=== PATIENT | female | born 1935 | race Caucasian/White ===

== ENCOUNTER 2020-11-05 12:57 | Inpatient (IN) ==
--- NOTE | 2020-11-05 13:40 | Emergency Department Note ---
Impression & Plan Acute hypernatremia, ROSA ELENA (acute kidney injury), Acute UTI, Pneumonitis ED Provider Note NAME: SAFIA BLANCAS AGE: 85 SEX: F : 1935 ARRIVES VIA: Ambulance INFORMANT: Patient ED PROVIDER(S): Jordan Galeano DO CHIEF COMPLAINT: Weakness HPI: Patient is an 85-year-old female who presents to the ER for gradual decline in status. Patient lives at [facility]. She had a fall at the end of September. She was seen at [place] where she had CTs done which were unremarkable. She was discharged. Since then there has been a gradual disc decline. Patient is a DNR/DNI. Staff note that she was diagnosed with a UTI and prescribed antibiotics. She is not taking the antibiotics. She is eating and drinking less. No new trauma. In discussion with family and they recommend that she come over for evaluation. They do have nurses there at the facility. They note that they checked her temperature this morning and it was slightly elevated at 100.5 and when they rechecked it was normal. She has been Covid tested multiple times and negative. ROS: See above HPI for pertinent positives & negatives. A total of 10 systems reviewed and were otherwise negative. PAST MEDICAL HISTORY:See Below PAST SURGICAL HISTORY:See Below FAMILY HISTORY:See Below SOCIAL HISTORY:See Below HOME MEDICATIONS:See Below ALLERGIES:See Below VITALS:See Below PHYSICAL EXAMINATION: GENERAL: Sitting up in bed, alert, agitated intermittently moving all extremities EYE EXAM: normal conjunctiva. PERRL and EOM's grossly intact. OROPHARYNX:mucous membranes are dry NECK: supple, no nuchal rigidity, no adenopathy, non-tender LUNGS: Clear to auscultation. Normal chest wall mechanics HEART: tachy, S1 normal and S2 normal ABDOMEN: abdomen soft, non-tender, normo-active bowel sounds, no masses, no rebound or guarding. UPPER EXTREMITIES: upper extremities are grossly normal. LOWER EXTREMITIES: No pitting edema. NEURO EXAM: Awake alert moving all extremities nonfocal not following commands nonverbal with exception of moaning MEDICAL DECISION MAKING: Patient is an 85-year-old female who presents the ER from residential and [place]. Patient is demented nonverbal not following commands. She is a DNR/DNI. IV was established blood work was obtained. Labs show no significant leukocytosis or anemia. BMP with a sodium 151. Chloride was elevated at 118. Creatinine was elevated at 2.4. LFTs bilirubin was unremarkable. Lipase was normal. UA does show a contaminated urine although it was a cath urine. We will treat for now. Patient was given 2 L IV fluids as well as IV Rocephin. Covid was negative. CT abdomen pelvis showed some pneumonitis. Chest x-ray shows opacities. Discussed with patient's family member who is the POA. They want conservative measures at this time. Discussed with hospitalist for further evaluation. Triage Nursing notes reviewed. Prior medical records reviewed Vital Signs: reviewed and remarkable for tachy Differential diagnosis: Infection, dehydration, metabolic abnormality, hypo/hyperglycemia, electrolyte disturbance, anemia, hypoxia, cardiac sources, intracerebral event, toxicologic, neurologic, as well as other pathologies. ER treatment provided: See below Diagnostics interpreted by me: ECG: none Cardiac Monitoring: An order was placed for continuous cardiac monitoring. The monitor shows a rate of 101 with sinus rhythm. Laboratory studies: As stated above and show below. Imaging studies: CT abdomen pelvis shows no acute pathology with exception of slightly dilated gallbladder and pneumonitis Portable AP upright 1 view of the chest shows bilateral opacities Consultation(s): Yudelka with hospitalist for further evaluation ED COURSE: Procedures: none Critical Care: None Past Med/Surg History Medical History (Updated 11/05/20 @ 17:21 by Jordan Galeano DO) Advanced dementia DNR (do not resuscitate) Mood disorder Social History Feels Safe at Home: Yes Allergies Allergies Allergy/AdvReac Type Severity Reaction Status Date / Time codeine Allergy Unknown ON Verified 11/05/20 15:41 [facility] MED LIST Home Meds Home Medications Medication Instructions Recorded Confirmed acetaminophen [Arthritis Pain 650 mg PO BID 11/05/20 11/05/20 Relief (acetam)] acetaminophen [Tylenol] 650 mg PO Q6H PRN 11/05/20 11/05/20 ascorbic acid (vitamin C) [Vitamin 500 mg PO BID 11/05/20 11/05/20 C] camphor-menthol [Biofreeze Pain 1 applic TOPICAL QID PRN 11/05/20 11/05/20 Relieving] citalopram 40 mg PO QDL 11/05/20 11/05/20 food supplemt, lactose-reduced 1 ea PO DAILY PRN 11/05/20 11/05/20 [Boost] lorazepam 0.5 mg PO WK 11/05/20 11/05/20 nystatin 1 applic TOPICAL TID PRN 11/05/20 11/05/20 quetiapine [Seroquel] 150 mg PO BID 11/05/20 11/05/20 silver sulfadiazine 1 applic TOPICAL BID PRN 11/05/20 11/05/20 sulfamethoxazole-trimethoprim 20 ml PO BID 11/05/20 11/05/20 trolamine salicylate [Aspercreme] 1 applic TOPICAL BID PRN 11/05/20 11/05/20 zinc gluconate 50 mg PO BID 11/05/20 11/05/20 Results & Data (ED) Vital Signs Vital Signs - 24 hr 11/05/20 13:19 11/05/20 14:45 11/05/20 15:46 Temperature 36.5 C Temperature Source Oral Pulse Rate 108 H Pulse Rate [Apical] Pulse Rate [Finger] 120 H 104 H Pulse Rhythm [Apical] Pulse Rhythm [Finger] Regular Respiratory Rate 18 25 H 19 Respiratory Effort / Characteristics Non-Labored Non-Labored Respiratory Depth Normal Normal Respiratory Pattern Regular Blood Pressure 147/82 H Blood Pressure [Left Arm] 138/64 126/62 Blood Pressure Mean 103 Blood Pressure Mean [Left Arm] 88 83 Blood Pressure Position Lying Blood Pressure Position [Left Arm] Pulse Oximetry 95 95 92 Oxygen Delivery Method Room Air Room Air Room Air Sepsis Recent Fever Within 48 Hours No Sepsis New/Unexplained Change in Mental Status No Sepsis Action Taken by Nursing No Action Required 11/05/20 16:26 Temperature Temperature Source Pulse Rate Pulse Rate [Apical] 102 H Pulse Rate [Finger] Pulse Rhythm [Apical] Regular Pulse Rhythm [Finger] Respiratory Rate 22 Respiratory Effort / Characteristics Non-Labored Spontaneous Respiratory Depth Normal Respiratory Pattern Regular Blood Pressure Blood Pressure [Left Arm] 138/77 Blood Pressure Mean Blood Pressure Mean [Left Arm] 97 Blood Pressure Position Blood Pressure Position [Left Arm] Lying Pulse Oximetry 93 Oxygen Delivery Method Room Air Sepsis Recent Fever Within 48 Hours Sepsis New/Unexplained Change in Mental Status Sepsis Action Taken by Nursing Laboratory Data Result diagrams: 11/05/20 14:00 11/05/20 14:00 Lab Results 11/05/20 11/05/20 11/05/20 Range/Units 14:00 14:00 14:00 WBC 6.65 (4.8-10.8) K/uL RBC 4.63 (4.2-5.4) M/uL Hgb 14.0 (12.0-16.0) g/dL Hct 44.2 (37-47) % MCV 95.5 (80-100) fL MCH 30.2 (25-34) pg MCHC 31.7 L (32-36) g/dL RDW Std Deviation 45.6 (36.4-46.3) fL RDW Coeff of Rigo 13.1 (11.5-14.5) % Plt Count 276 (130-400) K/uL MPV 11.1 H (7.4-10.4) fL Immature Gran % (Auto) 0.5 % Neut % (Auto) 68.6 % Lymph % (Auto) 17.1 % Boundary % (Auto) 13.4 % Eos % (Auto) 0.2 % Baso % (Auto) 0.2 % Neut # (Auto) 4.57 (1.4-6.5) K/uL Lymph # (Auto) 1.14 L (1.2-3.4) K/uL Boundary # (Auto) 0.89 H (0.11-0.59) K/uL Eos # (Auto) 0.01 (0-0.5) K/uL Baso # (Auto) 0.01 (0-0.2) K/uL Immature Gran # (Auto) 0.03 H (0.00-0.02) K/uL Sodium 151 H (136-145) mmol/L Potassium 4.5 (3.5-5.1) mmol/L Chloride 118 H (98-107) mmol/L Carbon Dioxide 26 (21-32) mmol/L Anion Gap 7.0 (3-11) BUN 52 H (7-18) mg/dl Creatinine 2.14 H (0.6-1.2) mg/dl Est Cr Clr Drug Dosing Not Reportable Est GFR ( Amer) 23.5 Est GFR (Non-Af Amer) 20.3 BUN/Creatinine Ratio 24.1 H (10-20) Glucose 110 H (70-99) mg/dl Calcium 9.2 (8.5-10.1) mg/dl Total Bilirubin 0.6 (0.2-1) mg/dl AST 34 (15-37) U/L ALT 23 (12-78) U/L Alkaline Phosphatase 113 (45-117) U/L Total Protein 8.9 H (6.4-8.2) gm/dl Albumin 3.4 (3.4-5.0) gm/dl Globulin 5.5 H (2.5-4.0) gm/dl Albumin/Globulin Ratio 0.6 L (0.9-2) Lipase 209 (73-393) U/L Urine Color Dark Yellow Urine Appearance Turbid A (Clear) Urine pH 8.0 H (4.5-7.5) Ur Specific [place] 1.023 (1.000-1.030) Urine Protein 2+ H (Negative) Urine Glucose (UA) Negative (Negative) Urine Ketones Trace H (Negative) Urine Blood 2+ H (Negative) Urine Nitrite Negative (Negative) Urine Bilirubin Negative (Negative) Urine Urobilinogen Negative (Negative) Ur Leukocyte Esterase 1+ H (Negative) Urine WBC (Auto) >30 H (0-5) /hpf Urine RBC (Auto) 10-30 H (0-4) /hpf U Hyaline Cast (Auto) 1-5 (0-5) /lpf U Epithel Cells (Auto) 20-30 H (0-5) /lpf Urine Bacteria (Auto) 4+ H (Negative) Urine Yeast Not Reportable COVID-19 Eval Order SARS-CoV-2, RNA, NAAT (NEGATIVE) SARS-CoV-2 Ag (Rapid) (Negative) 11/05/20 11/05/20 11/05/20 Range/Units 16:40 16:40 Unknown WBC (4.8-10.8) K/uL RBC (4.2-5.4) M/uL Hgb (12.0-16.0) g/dL Hct (37-47) % MCV (80-100) fL MCH (25-34) pg MCHC (32-36) g/dL RDW Std Deviation (36.4-46.3) fL RDW Coeff of Rigo (11.5-14.5) % Plt Count (130-400) K/uL MPV (7.4-10.4) fL Immature Gran % (Auto) % Neut % (Auto) % Lymph % (Auto) % Boundary % (Auto) % Eos % (Auto) % Baso % (Auto) % Neut # (Auto) (1.4-6.5) K/uL Lymph # (Auto) (1.2-3.4) K/uL Boundary # (Auto) (0.11-0.59) K/uL Eos # (Auto) (0-0.5) K/uL Baso # (Auto) (0-0.2) K/uL Immature Gran # (Auto) (0.00-0.02) K/uL Sodium (136-145) mmol/L Potassium (3.5-5.1) mmol/L Chloride (98-107) mmol/L Carbon Dioxide (21-32) mmol/L Anion Gap (3-11) BUN (7-18) mg/dl Creatinine (0.6-1.2) mg/dl Est Cr Clr Drug Dosing Est GFR ( Amer) Est GFR (Non-Af Amer) BUN/Creatinine Ratio (10-20) Glucose (70-99) mg/dl Calcium (8.5-10.1) mg/dl Total Bilirubin (0.2-1) mg/dl AST (15-37) U/L ALT (12-78) U/L Alkaline Phosphatase (45-117) U/L Total Protein (6.4-8.2) gm/dl Albumin (3.4-5.0) gm/dl Globulin (2.5-4.0) gm/dl Albumin/Globulin Ratio (0.9-2) Lipase (73-393) U/L Urine Color Urine Appearance (Clear) Urine pH (4.5-7.5) Ur Specific [place] (1.000-1.030) Urine Protein (Negative) Urine Glucose (UA) (Negative) Urine Ketones (Negative) Urine Blood (Negative) Urine Nitrite (Negative) Urine Bilirubin (Negative) Urine Urobilinogen (Negative) Ur Leukocyte Esterase (Negative) Urine WBC (Auto) (0-5) /hpf Urine RBC (Auto) (0-4) /hpf U Hyaline Cast (Auto) (0-5) /lpf U Epithel Cells (Auto) (0-5) /lpf Urine Bacteria (Auto) (Negative) Urine Yeast COVID-19 Eval Order [facility] SARS-CoV-2, RNA, NAAT NEGATIVE (NEGATIVE) SARS-CoV-2 Ag (Rapid) Negative (Negative) Administered Medications Discontinued Medications Sodium Chloride (Nss 1000ml) 2,000 mls @ 999 mls/hr IV .Q2H1M ONE Stop: 11/05/20 17:07 Last Admin: 11/05/20 15:40 Dose: 999 mls/hr Documented by: [id number] Ceftriaxone Sodium (Rocephin) 1,000 mg in 50 mls @ 100 mls/hr IV NOW STA Stop: 11/05/20 15:36 Last Infusion: 11/05/20 16:34 Dose: 0 mls/hr Documented by: [id number] Admin: 11/05/20 15:39 Dose: 100 mls/hr Documented by: [id number] Discharge Plan Visit Data Chief Complaint: Urinary Symptoms ED Provider: Jordan Galeano Discharge Problem: Acute hypernatremia, ROSA ELENA (acute kidney injury), Acute UTI, Pneumonitis Forms Stand Alone Forms: [facility] Prescriptions Prescriptions: No Action silver sulfadiazine 1 % Cream 1 applic TOPICAL BID PRN (Reason: AFFECTED AREAS) RF: 0 acetaminophen [Tylenol] 325 mg Tablet 650 mg PO Q6H PRN (Reason: FEVER/PAIN) RF: 0 citalopram 40 mg Tablet 40 mg PO QDL RF: 0 quetiapine [Seroquel] 100 mg Tablet 150 mg PO BID RF: 0 acetaminophen [Arthritis Pain Relief (acetam)] 650 mg Tablet Extended Release 650 mg PO BID RF: 0 lorazepam 0.5 mg Tablet 0.5 mg PO WK RF: 0 ascorbic acid (vitamin C) [Vitamin C] 500 mg Tablet 500 mg PO BID RF: 0 sulfamethoxazole-trimethoprim 200-40 mg/5 mL Suspension 20 ml PO BID RF: 0 zinc gluconate 50 mg Tablet 50 mg PO BID RF: 0 nystatin 100,000 unit/gram Powder 1 applic TOPICAL TID PRN (Reason: Rash) RF: 0 trolamine salicylate [Aspercreme] 10 % Cream 1 applic TOPICAL BID PRN (Reason: LEG PAIN) RF: 0 Boost Liquid 1 ea PO DAILY PRN (Reason: IF EATS <25% OF MEALS) RF: 0 Biofreeze Pain Relieving 0.2-3.5 % Gel 1 applic TOPICAL QID PRN (Reason: Pain) RF: 0
[2020-11-05 14:22] LABS: Basophils # (auto) 0.01 K/uL (0-0.2); Basophils % (auto) 0.2 %; Eosinophils # (auto) 0.01 K/uL (0-0.5); Eosinophils % (auto) 0.2 %; Hematocrit (blood only) 44.2 % (37-47); Immature Granulocytes # (auto) 0.03 K/uL (0.00-0.02); Immature Granulocytes % (auto) 0.5 %; Lymphocytes # (auto) 1.14 K/uL (1.2-3.4); Lymphocytes % (auto) 17.1 %; Mean Corpuscular Hemoglobin 30.2 pg (25-34); Mean Corpuscular Hgb Conc 31.7 g/dL (32-36); Mean Corpuscular Volume 95.5 fL (80-100); Mean Platelet Volume 11.1 fL (7.4-10.4); Monocytes # (auto) 0.89 K/uL (0.11-0.59); Monocytes % (auto) 13.4 %; Neutrophils # (auto) 4.57 K/uL (1.4-6.5); Neutrophils % (auto) 68.6 %; Platelet Count 276 K/uL (130-400); RDW Coefficient of Variation 13.1 % (11.5-14.5); RDW Standard Deviation 45.6 fL (36.4-46.3); Red Blood Count 4.63 M/uL (4.2-5.4); White Blood Count 6.65 K/uL (4.8-10.8)
[2020-11-05 14:33] LABS: Appearance Urine Turbid (Clear); Bacteria Urine Automated 4+ (Negative); Bilirubin Urine Negative (Negative); Blood Urine 2+ (Negative); Color Urine Dark Yellow; Epithelial Cell Urine Auto 20-30 /lpf (0-5); Glucose Urine UA Negative (Negative); Ketones Urine Trace (Negative); Leukocyte Esterase Urine 1+ (Negative); Nitrite Urine Negative (Negative); Specific Gravity Urine 1.023 (1.000-1.030); Urobilinogen Urine Negative (Negative); WBC Urine Automated >30 /hpf (0-5)
[2020-11-05 14:39] LABS: Alanine Aminotransferase 23 U/L (12-78); Albumin Level 3.4 gm/dl (3.4-5.0); Aspartate Aminotransferase 34 U/L (15-37); BUN Creatinine Ratio 24.1 (10-20); Blood Urea Nitrogen 52 mg/dl (7-18); Calcium 9.2 mg/dl (8.5-10.1); Carbon Dioxide 26 mmol/L (21-32); Chloride 118 mmol/L (98-107); Est GFR (African American) 23.5; Est GFR (Non-African American) 20.3; Glucose 110 mg/dl (70-99); Lipase 209 U/L (73-393); Potassium 4.5 mmol/L (3.5-5.1); Sodium 151 mmol/L (136-145)
--- NOTE | 2020-11-05 14:40 | XRay Report ---
XR chest 1V portable HISTORY: Weakness. COMPARISON: None. FINDINGS: No pneumothorax. No pleural effusions. The heart is normal in size. There are low lung volu mes. Retrocardiac density is consistent with a moderate to large hiatus hernia. There are hazy periph eral airspace opacities within the right midlung zone and bilateral lung bases. This favors a viral p neumonia. IMPRESSION: Peripheral hazy airspace opacities within the right midlung zone and bilateral lung bases suggestive of a viral pneumonia. ACT 112: Negative or not required by law. Electronically signed by: Vineet Mccauley M.D. 11/05/2020 2:38 PM
[2020-11-05 14:42] LABS: Albumin Globulin Ratio 0.6 (0.9-2); Alkaline Phosphatase 113 U/L (45-117); Bilirubin,Total 0.6 mg/dl (0.2-1); Globulin 5.5 gm/dl (2.5-4.0); Total Protein 8.9 gm/dl (6.4-8.2)
[2020-11-05 14:51] LABS: Protein Urine 2+ (Negative); Sulfosalicylic Acid Urine Positive (Negative)
[2020-11-05] MEDS ORDERED: SODIUM CHLORIDE 0.9% 1000ML 2,000 ML IV ONE (15:07)
[2020-11-05] MEDS ORDERED: cefTRIAXone SODIUM 1,000 MG/50 ML BAG IV STA (15:07)
--- NOTE | 2020-11-05 15:39 | CT Scan Report ---
CT SCAN OF THE ABDOMEN AND PELVIS WITHOUT IV CONTRAST CLINICAL HISTORY: Generalized weakness. Not eating or drinking. COMPARISON STUDY: No priors. TECHNIQUE: CT scan of the abdomen and pelvis is performed from the lung bases to the proximal femora. Images are reviewed in the axial, sagittal, and coronal planes. IV contrast was not administered for this examination. Note that the examination is significant suboptimal without oral and IV contrast. There is also streak artifact from the arms which could not be elevated above the abdomen and motion artifact. A dose lowering technique was utilized adhering to the principles of ALARA. CT DOSE: 393.68 mGy.cm FINDINGS: Lung bases: The heart is normal in size noting trace pericardial effusion. There are coronary artery calcifications. There is subpleural groundglass consolidation at the right lung base. Minimal groundg lass consolidation is noted in the lingula. No pleural effusion is seen. There is a large hiatal tiara ia. Liver: The unenhanced liver is normal in size, contour, and attenuation. There is no intrahepatic lobito iary ductal dilatation. Gallbladder: The gallbladder is distended but otherwise normal as imaged.. Spleen: Normal in size and attenuation. Pancreas: The unenhanced pancreas is atrophic and grossly unremarkable. Adrenal glands: Unremarkable. Kidneys: The unenhanced kidneys demonstrate cortical atrophy and are without hydronephrosis. There ar e no renal calculi identified. Bilateral renal cysts measure up to 3 cm. Abdominal vasculature: There is advanced atherosclerotic calcification and mild ectasia of the abdomi nal aorta. Bowel: There is rectosigmoid fecal retention and moderate constipation. No bowel obstruction is seen. The appendix is not visualized. Peritoneum: There is no intraperitoneal free air or abdominal ascites. Lymphadenopathy: None. Pelvic viscera: The bladder is grossly unremarkable. The uterus is surgically absent. No adnexal lesi on is seen. Skeletal structures: The skeletal structures are osteopenic. There is moderate to advanced lumbosacra l spondylosis. A chronic appearing compression deformities noted in T11. No lytic or blastic lesions are seen. IMPRESSION: 1. Suboptimal examination without oral and IV contrast. There is also significant streak and motion a rtifact 2. There is groundglass consolidation at both lung bases, right greater than left. This is typical fo r an infectious/inflammatory pneumonitis and clinical correlation will be required. 3. There are no acute infectious or inflammatory findings in the abdomen or pelvis. 4. There is rectosigmoid fecal retention and moderate constipation. No bowel obstruction is seen. 5. The gallbladder is distended but otherwise normal as imaged. Consider right upper quadrant ultraso und if there is clinical concern for biliary pathology. 6. Large hiatal hernia. 7. Additional findings as above. ACT 112: Negative or not required by law. Electronically signed by: Robbie Mcfarland M.D. 11/05/2020 3:37 PM
--- NOTE | 2020-11-05 16:10 | History & Physical Report ---
Date of Service November 05, 2020 Assessment & Plan (1) Sepsis: (2) Urinary tract infection: This is an 85-year-old female with PMH of advanced dementia, mood disorder, recent UTI who presents from [facility] in [place] with gradual decline in UTI. -Febrile PUBLIC HEALTH SPECIALIST with T: 100.5 F, tachycardia, urinary source of infection - meets sepsis per CMS guidelines -In ED, patient given 2 L NSS bolus and empiric Rocephin. Urine culture ordered- added blood cx, lactate, procal -Prescribed Bactrim on 10/24 at [facility] but reportedly refusing abx in setting of 3 week gradual decline, per facility -Continue empiric abx with broad spectrum zosyn, vanc. MRSA swab pending, follow cultures and deescalate abx as appropriate -CT abd/pelvis without evidence of urinary obstruction. Bladder scan PRN (3) Hypernatremia: (4) Generalized weakness: (5) Dehydration: Na of 151, Cl 118 in setting of poor PO intake -Received 2 L bolus of NSS in ED. Repeating BMP and will then order additional fluids -Monitor BMP daily (6) Acute renal failure: Cr elevated at 2.14, BUN 51. Unsure of renal function baseline - requested records from Assisted Living facility -Expect improvement with IV fluids, Ct abd/pelvis without evidence of urinary obstruction -Daily BMP, consider nephrology consult (7) Ground glass opacity present on imaging of lung: CXR and CT abd/pelvis with groundglass consolidation at both lung bases, right greater than left. This is typical for an infectious/inflammatory pneumonitis and clinical correlation will be required -Patient non-verbal so difficult to get clinical picture but afebrile. Rapid covid screen negative but covid RNA NAAT test also negative. Receiving empiric abx (8) Constipation: CT abd/pelvis with rectosigmoid fecal retention and moderate constipation. No bowel obstruction is seen -Ordered Fleet enema, continue IV fluids (9) Mood disorder: Continue SSRI, Seroquel (10) Advanced dementia: Nonverbal at baseline. Will attempt to reach POA again to discuss goals of care (11) Goals of care, counseling/discussion: Discussed with POA Odell ([phone]) regarding goals of care. He is one of 3 POAs. Confirmed patient as a DNR/DNI. Ok with fluids and antibiotics. Agreeable to palliative care consult to further determine goals of care. DVT Ppx: SQ heparin Code status: DNR/DNI PCP: Pedro Pablo (Ryan) Dispo: Admitted to [facility]. Discharge planning, PT and OT ordered for when patient medically appropriate for return to [facility] Requested faxed documentation from [facility]isted [facility]. Will update problem list with info provided. Patient seen in collaboration with Dr. Ashton. Please see addendum. History of Present Illness Chief Complaint: Gradual decline, dehydration, UTI Primary Care Provider: Sukhi Chamorro MD This is an 85-year-old female with PMH of advanced dementia, mood disorder, recent UTI who presents from [facility] in [place] with gradual decline in UTI. Patient lives in a dementia unit and is nonverbal at baseline. Was seen at [facility] at the end of September after fall. CT scans reportedly unremarkable and was sent back to facility. Since then, staff has noted a gradual decline. Is ambulatory at baseline, but has been more lethargic, refusing medications and not eating or drinking much. Was evaluated at [facility] on 10/24 with fever and concern for Covid. Covid test was negative and patient was diagnosed with UTI and sent home on Bactrim. No urine culture and records. Has not been compliant with medications, including Bactrim and was found to be febrile this morning temperature 100.5 F. Patient sent to [facility] for further evaluation. Patient is a DNR/DNI. Family member POA is involved and desired patient to come in for further evaluation. Reportedly okay with IV fluids and antibiotics but will clarify through phone discussion. Unable to obtain ROS due to cognitive status. In ED, patient afebrile. Tachycardic at 120. UA grossly abnormal and started on empiric Rocephin. Given 2 L NSS bolus. Covid antigen screen negative. CT abd/pelvis suboptimal examination without oral and IV contrast but presence of ground glass consolidation at both lung bases, right greater than left. This is typical for an infectious/inflammatory pneumonitis and clinical correlation will be required. No acute infectious or inflammatory findings in the abdomen or pelvis. There is rectosigmoid fecal retention and moderate constipation. No bowel obstruction is seen. Allergies Allergy/AdvReac Type Severity Reaction Status Date / Time codeine Allergy Unknown ON Verified 11/05/20 15:41 [facility] MED LIST Home Medications Medication Instructions Recorded Confirmed Type acetaminophen [Arthritis Pain 650 mg PO BID 11/05/20 11/05/20 History Relief (acetam)] acetaminophen [Tylenol] 650 mg PO Q6H PRN 11/05/20 11/05/20 History ascorbic acid (vitamin C) [Vitamin 500 mg PO BID 11/05/20 11/05/20 History C] camphor-menthol [Biofreeze Pain 1 applic TOPICAL QID PRN 11/05/20 11/05/20 History Relieving] citalopram 40 mg PO QDL 11/05/20 11/05/20 History food supplemt, lactose-reduced 1 ea PO DAILY PRN 11/05/20 11/05/20 History [Boost] lorazepam 0.5 mg PO WK 11/05/20 11/05/20 History nystatin 1 applic TOPICAL TID PRN 11/05/20 11/05/20 History quetiapine [Seroquel] 150 mg PO BID 11/05/20 11/05/20 History silver sulfadiazine 1 applic TOPICAL BID PRN 11/05/20 11/05/20 History sulfamethoxazole-trimethoprim 20 ml PO BID 11/05/20 11/05/20 History trolamine salicylate [Aspercreme] 1 applic TOPICAL BID PRN 11/05/20 11/05/20 History zinc gluconate 50 mg PO BID 11/05/20 11/05/20 History Past Med/Surg History Medical History Advanced dementia DNR (do not resuscitate) Mood disorder Social History Feels Safe at Home: Yes Review of Systems Review of Systems: Unobtainable due to cognitive status Physical Exam Physical Exam: Please see Dr. Ashton's addendum for physical exam. Results & Data Results & Data ([facility]) Vital Signs (Past 12 Hours) Vital Signs Temp Pulse Pulse Resp BP BP Pulse Ox 11/05/20 15:46 104 H 19 126/62 92 11/05/20 14:45 120 H 25 H 138/64 95 11/05/20 13:19 36.5 C 108 H 18 147/82 H 95 Laboratory Results Short CBC 11/05/20 11/05/20 11/05/20 Range/Units 14:00 14:00 14:00 WBC 6.65 (4.8-10.8) K/uL RBC 4.63 (4.2-5.4) M/uL Hgb 14.0 (12.0-16.0) g/dL Hct 44.2 (37-47) % MCV 95.5 (80-100) fL MCH 30.2 (25-34) pg MCHC 31.7 L (32-36) g/dL RDW Std Deviation 45.6 (36.4-46.3) fL RDW Coeff of [place] 13.1 (11.5-14.5) % Plt Count 276 (130-400) K/uL MPV 11.1 H (7.4-10.4) fL Immature Gran % (Auto) 0.5 % Neut % (Auto) 68.6 % Lymph % (Auto) 17.1 % [place] % (Auto) 13.4 % Eos % (Auto) 0.2 % Baso % (Auto) 0.2 % Neut # (Auto) 4.57 (1.4-6.5) K/uL Lymph # (Auto) 1.14 L (1.2-3.4) K/uL [place] # (Auto) 0.89 H (0.11-0.59) K/uL Eos # (Auto) 0.01 (0-0.5) K/uL Baso # (Auto) 0.01 (0-0.2) K/uL Immature Gran # (Auto) 0.03 H (0.00-0.02) K/uL Sodium 151 H (136-145) mmol/L Potassium 4.5 (3.5-5.1) mmol/L Chloride 118 H (98-107) mmol/L Carbon Dioxide 26 (21-32) mmol/L Anion Gap 7.0 (3-11) BUN 52 H (7-18) mg/dl Creatinine 2.14 H (0.6-1.2) mg/dl Est Cr Clr Drug Dosing Not Reportable Est GFR ( Amer) 23.5 Est GFR (Non-Af Amer) 20.3 BUN/Creatinine Ratio 24.1 H (10-20) Glucose 110 H (70-99) mg/dl Calcium 9.2 (8.5-10.1) mg/dl Total Bilirubin 0.6 (0.2-1) mg/dl AST 34 (15-37) U/L ALT 23 (12-78) U/L Alkaline Phosphatase 113 (45-117) U/L Total Protein 8.9 H (6.4-8.2) gm/dl Albumin 3.4 (3.4-5.0) gm/dl Globulin 5.5 H (2.5-4.0) gm/dl Albumin/Globulin Ratio 0.6 L (0.9-2) Lipase 209 (73-393) U/L Urine Color Dark Yellow Urine Appearance Turbid A (Clear) Urine pH 8.0 H (4.5-7.5) Ur Specific [place] 1.023 (1.000-1.030) Urine Protein 2+ H (Negative) Urine Glucose (UA) Negative (Negative) Urine Ketones Trace H (Negative) Urine Blood 2+ H (Negative) Urine Nitrite Negative (Negative) Urine Bilirubin Negative (Negative) Urine Urobilinogen Negative (Negative) Ur Leukocyte Esterase 1+ H (Negative) Urine WBC (Auto) >30 H (0-5) /hpf Urine RBC (Auto) 10-30 H (0-4) /hpf U Hyaline Cast (Auto) 1-5 (0-5) /lpf U Epithel Cells (Auto) 20-30 H (0-5) /lpf Urine Bacteria (Auto) 4+ H (Negative) Urine Yeast Not Reportable SARS-CoV-2 Ag (Rapid) (Negative) 11/05/20 Range/Units Unknown WBC (4.8-10.8) K/uL RBC (4.2-5.4) M/uL Hgb (12.0-16.0) g/dL Hct (37-47) % MCV (80-100) fL MCH (25-34) pg MCHC (32-36) g/dL RDW Std Deviation (36.4-46.3) fL RDW Coeff of [place] (11.5-14.5) % Plt Count (130-400) K/uL MPV (7.4-10.4) fL Immature Gran % (Auto) % Neut % (Auto) % Lymph % (Auto) % [place] % (Auto) % Eos % (Auto) % Baso % (Auto) % Neut # (Auto) (1.4-6.5) K/uL Lymph # (Auto) (1.2-3.4) K/uL [place] # (Auto) (0.11-0.59) K/uL Eos # (Auto) (0-0.5) K/uL Baso # (Auto) (0-0.2) K/uL Immature Gran # (Auto) (0.00-0.02) K/uL Sodium (136-145) mmol/L Potassium (3.5-5.1) mmol/L Chloride (98-107) mmol/L Carbon Dioxide (21-32) mmol/L Anion Gap (3-11) BUN (7-18) mg/dl Creatinine (0.6-1.2) mg/dl Est Cr Clr Drug Dosing Est GFR ( Amer) Est GFR (Non-Af Amer) BUN/Creatinine Ratio (10-20) Glucose (70-99) mg/dl Calcium (8.5-10.1) mg/dl Total Bilirubin (0.2-1) mg/dl AST (15-37) U/L ALT (12-78) U/L Alkaline Phosphatase (45-117) U/L Total Protein (6.4-8.2) gm/dl Albumin (3.4-5.0) gm/dl Globulin (2.5-4.0) gm/dl Albumin/Globulin Ratio (0.9-2) Lipase (73-393) U/L Urine Color Urine Appearance (Clear) Urine pH (4.5-7.5) Ur Specific [place] (1.000-1.030) Urine Protein (Negative) Urine Glucose (UA) (Negative) Urine Ketones (Negative) Urine Blood (Negative) Urine Nitrite (Negative) Urine Bilirubin (Negative) Urine Urobilinogen (Negative) Ur Leukocyte Esterase (Negative) Urine WBC (Auto) (0-5) /hpf Urine RBC (Auto) (0-4) /hpf U Hyaline Cast (Auto) (0-5) /lpf U Epithel Cells (Auto) (0-5) /lpf Urine Bacteria (Auto) (Negative) Urine Yeast SARS-CoV-2 Ag (Rapid) Negative (Negative) BMP 12/15/20 14:00 Sodium 151 H Potassium 4.5 Chloride 118 H Carbon Dioxide 26 BUN 52 H Creatinine 2.14 H Glucose 110 H Calcium 9.2 Liver Function 11/05/20 Range/Units 14:00 Total Bilirubin 0.6 (0.2-1) mg/dl AST 34 (15-37) U/L ALT 23 (12-78) U/L Alkaline Phosphatase 113 (45-117) U/L Albumin 3.4 (3.4-5.0) gm/dl Urine 11/05/20 Range/Units 14:00 Urine Color Dark Yellow Urine Appearance Turbid A (Clear) Urine pH 8.0 H (4.5-7.5) Ur Specific [place] 1.023 (1.000-1.030) Urine Protein 2+ H (Negative) Urine Glucose (UA) Negative (Negative) Diagnostic Findings CXR: IMPRESSION: Peripheral hazy airspace opacities within the right midlung zone and bilateral lung bases suggestive of a viral pneumonia. CT abd/pelvis: IMPRESSION: 1. Suboptimal examination without oral and IV contrast. There is also significant streak and motion artifact 2. There is groundglass consolidation at both lung bases, right greater than left. This is typical for an infectious/inflammatory pneumonitis and clinical correlation will be required. 3. There are no acute infectious or inflammatory findings in the abdomen or pelvis. 4. There is rectosigmoid fecal retention and moderate constipation. No bowel obstruction is seen. 5. The gallbladder is distended but otherwise normal as imaged. Consider right upper quadrant ultrasound if there is clinical concern for biliary pathology. 6. Large hiatal hernia. 7. Additional findings as above Code Status & VTE Plan VTE Prophylaxis Plan VTE Prophylaxis will be ordered: Yes Supervising Physician Co-Signing Physician Notes ROS-offers no history, follows no commands Physical Exam Gen-AA not oriented, combative, Afebrile Head-NCAT, EOMI, PERRLA, Anicteric Sclera, No Posterior Pharyngeal Erythema, MM very dry Neck-Supple, No JVD, No Thyromegaly, No Masses, No LAD, No Bruits Lungs-Clear to Auscultation Bilaterally, No Rales, No Rhonchi, No Wheezing, No Crepitus Chest-No S4, +S1, +S2, No S3, No Murmurs, No Rubs, No Gallops, No Ectopy Abdomen-Soft, Bowel Sounds Present, Non Tender, Non Distended, No Hepatomegaly, No Splenomegaly, No Palpable Masses, No Rebound, No Rigidity, No Guarding Musculoskeletal-Full Range of Motion Bilaterally, No CVAT Extremities-No Cyanosis, No Clubbing, No Edema Nuero-Cranial Nerves II-XII grossly intact, Motor WNL, DTRs WNL, Strength WNL, Non Focal Psych-Normal Mood
[2020-11-05 18:11] LABS: BUN Creatinine Ratio 26.2 (10-20); Blood Urea Nitrogen 50 mg/dl (7-18); Calcium 7.9 mg/dl (8.5-10.1); Carbon Dioxide 25 mmol/L (21-32); Chloride 122 mmol/L (98-107); Est GFR (African American) 27.2; Est GFR (Non-African American) 23.5; Glucose 117 mg/dl (70-99); Potassium 4.6 mmol/L (3.5-5.1); Sodium 153 mmol/L (136-145)
[2020-11-05] MEDS ORDERED: SILVER SULFADIAZINE 1% CR 50 GM JAR TOP PRN (19:06)
[2020-11-05] MEDS ORDERED: TROLAMINE SALICYLATE 10% CRM 255 APPLN/85 GM TUBE EXT PRN (19:06)
[2020-11-05] MEDS ORDERED: ACETAMINOPHEN 325 MG TAB PO PRN (19:06)
[2020-11-05] MEDS ORDERED: NYSTATIN POWDER 15GM BTL EXT PRN (19:06)
[2020-11-05] MEDS ORDERED: POLYETHYLENE (MIRALAX) 17 GM PACK PO PRN (19:06)
[2020-11-05] MEDS ORDERED: NON-FORMULARY MEDICATION (Food Supplemt, Lactose-Reduced Liquid) PO PRN (19:06)
[2020-11-05] MEDS ORDERED: CONSULT PHARMACY STA (19:06)
[2020-11-05] MEDS ORDERED: ONDANSETRON INJ 2 MG/ML 2 ML VIAL IV PRN (19:06)
[2020-11-05] MEDS ORDERED: PATIENT'S HEIGHT AND/OR WEIGHT NEEDED SCH (19:15)
[2020-11-05] MEDS ORDERED: PIPERACILLIN/TAZOBACTAM 4.5 GM in DEXTROSE 5% 100 ML IV ONE (19:30)
[2020-11-05] MEDS ORDERED: VANCOMYCIN HCL 1,500 MG in SODIUM CHLORIDE 0.9% 500 ML IV SCH (19:30)
[2020-11-05] MEDS ORDERED: VANCOMYCIN CONSULT ACTIVE PRN (19:31)
[2020-11-05] MEDS ORDERED: PIPERACILL/TAZOBAC CONSULT ACTIVE PRN (19:31)
[2020-11-05] MEDS ORDERED: PIPERACILLIN/TAZOBACTAM 3.375 GM in DEXTROSE 5% 100 ML IV ONE (20:00)
[2020-11-05] MEDS ORDERED: VANCOMYCIN HCL 1,250 MG in SODIUM CHLORIDE 0.9% 250 ML IV SCH (20:00)
[2020-11-05] MEDS ORDERED: SOD PHOSPHATE/SOD BIPHOSPHATE ENEMA 132 ML BTL PR STA (20:35)
[2020-11-05] MEDS ORDERED: ACETAMINOPHEN 650 MG PO SCH (21:00)
[2020-11-05] MEDS: QUEtiapine FUMARATE 100 MG TABLET PO SCH (21:34)
[2020-11-05] MEDS: HEPARIN SOD 5,000 UNIT/0.5 ML VIAL SQ SCH (21:36)
[2020-11-05] MEDS: D5W AND 1/2NSS 1,000 ML IV SCH (22:52)
[2020-11-06] MEDS: HEPARIN SOD 5,000 UNIT/0.5 ML VIAL SQ SCH ×3 (05:40→23:39)
[2020-11-06] MEDS ORDERED: PIPERACILLIN/TAZOBACTAM 3.375 GM in DEXTROSE 5% 100 ML IV SCH (06:00)
[2020-11-06] MEDS: ASCORBIC ACID 500 MG TAB PO SCH ×2 (06:13→20:11)
[2020-11-06 06:56] LABS: BUN Creatinine Ratio 23.4 (10-20); Calcium 7.8 mg/dl (8.5-10.1); Creatinine Clr Calc Pharmacy 20.3 ml/min; Est GFR (African American) 35.1; Est GFR (Non-African American) 30.2; Potassium 4.5 mmol/L (3.5-5.1)
[2020-11-06 08:03] LABS: Hematocrit (blood only) 36.1 % (37-47); Hemoglobin 11.2 g/dL (12.0-16.0); Mean Corpuscular Hemoglobin 29.9 pg (25-34); Mean Corpuscular Volume 96.5 fL (80-100); Mean Platelet Volume 10.4 fL (7.4-10.4); Platelet Count 215 K/uL (130-400); RDW Coefficient of Variation 13.2 % (11.5-14.5); Red Blood Count 3.74 M/uL (4.2-5.4); White Blood Count 5.08 K/uL (4.8-10.8)
--- NOTE | 2020-11-06 08:33 | Pharmacy Report ---
Pharmacy Abx Dose Short Note - Date of Service November 06, 2020 - Assessment & Plan Assessment 85 year old F receiving vancomycin/Zosyn for treatment of sepsis Day # 2 of antimicrobial therapy. Plan Vancomycin * loading dose of vancomycin 1250 mg IV x 1 (25 mg/kg) given yesterday 11/05/20. * Patient specific pharmacokinetics based upon one dose suggests half-life of 12 hours with elimination constant of 0.06 hr-1. * Will start vancomycin 750 mg IV q12 hours check level prior to third dose to assure no communication. Zosyn * Zosyn 3.375 gm IV x 1 then 3.375 gm IV [id number] Pharmacy will continue to follow and will adjust dose/frequency as necessary. Thank you.
[2020-11-06] MEDS ORDERED: VANCOMYCIN HCL 1,000 MG in SODIUM CHLORIDE 0.9% 250 ML IV SCH (10:00)
[2020-11-06] MEDS ORDERED: VANCOMYCIN HCL 750 MG in SODIUM CHLORIDE 0.9% 250 ML IV SCH (10:00)
--- NOTE | 2020-11-06 10:05 | Nephrology Consultation ---
Date of Consultation November 06, 2020 Assessment & Plan (1) ROSA ELENA (acute kidney injury): Baseline renal function unknown. However creatinine improved from 2.1 at admission to 1.5 today, clearly prerenal at least in part. -await OP labs/baseline -avoid nephrotoxins >> pharmacy already dosing vanco by level and have d/w pharmacy to hold dose until level posts Present on Admission?: Yes (2) Dehydration: as evidenced by hypernatremia > unchanged since admission and w/ worsening hyperchloremia -changed IV fluids to D5W and up rate to 125 ml/hr and will monitor BP; if BP drops, can put 1/2 NS back into IVF -has to get vanco trough this pm so will repeat bmp then too Present on Admission?: Yes (3) Sepsis: HR improved overnight; renal function improving; on zosyn/vanco/ivf >> f/u pending cxs; found late to day to be covid positive Present on Admission?: Yes (4) Goals of care, counseling/discussion: palliative following appropriately and pt not for escalation of /invasive care Present on Admission?: Yes History of Present Illness Reason for Consultation: hypernatremia Requesting Physician: Dr Tse Attending Physician: Scooter Tse MD History of Present Illness 85-year-old female whom I am asked to evaluate for hypernatremia after she was admitted yesterday with sepsis from UTI and concern for acute kidney injury though baseline renal function unknown. Past medical history includes advanced dementia (facility resident, nonverbal at baseline), recent UTI. No significant ambulatory dysfunction at baseline. She fell at the end of September and has since then been more lethargic and refusing medications as well as food and drink. Evaluated at [facility] October 24 with fever: Covid test negative; patient diagnosed with UTI and discharged back to facility on Bactrim. Sent to hospital yesterday due to a.m. temperature 100.5; she was tachycardic to 120 at admission. Her presenting sodium was 151, presenting creatinine 2.1. She received 2 L of normal saline in the ER. Sodium this morning 152 and creatinine 1.5. Palliative care has been consulted as well; primary service has been in frequent touch with patient's POA. The patient is currently getting Zosyn, vancomycin, D5 half-normal saline at 80 mL hourly. She had 1.3 g of vancomycin last evening at 8 PM. She is slated to get 750 mg of vancomycin every 12 hours now, with first dose this morning. I also received a call from Dr Tse this afternoon after seeing pt midday t hat Covid test prior to admission at her facility came back positive. Allergies Allergy/AdvReac Type Severity Reaction Status Date / Time codeine Allergy Unknown ON Verified 11/05/20 15:41 [facility] ED MED LIST Home Medications Medication Instructions Recorded Confirmed Type acetaminophen [Arthritis Pain 650 mg PO BID 11/05/20 11/05/20 History Relief (acetam)] acetaminophen [Tylenol] 650 mg PO Q6H PRN 11/05/20 11/05/20 History ascorbic acid (vitamin C) [Vitamin 500 mg PO BID 11/05/20 11/05/20 History C] camphor-menthol [Biofreeze Pain 1 applic TOPICAL QID PRN 11/05/20 11/05/20 History Relieving] citalopram 40 mg PO QDL 11/05/20 11/05/20 History food supplemt, lactose-reduced 1 ea PO DAILY PRN 11/05/20 11/05/20 History [Boost] lorazepam 0.5 mg PO WK 11/05/20 11/05/20 History nystatin 1 applic TOPICAL TID PRN 11/05/20 11/05/20 History quetiapine [Seroquel] 150 mg PO BID 11/05/20 11/05/20 History silver sulfadiazine 1 applic TOPICAL BID PRN 11/05/20 11/05/20 History sulfamethoxazole-trimethoprim 20 ml PO BID 11/05/20 11/05/20 History trolamine salicylate [Aspercreme] 1 applic TOPICAL BID PRN 11/05/20 11/05/20 History zinc gluconate 50 mg PO BID 11/05/20 11/05/20 History Patient History Medical History (Updated 11/06/20 @ 10:17 by Coco Tan MD, PhD) Advanced dementia DNR (do not resuscitate) Mood disorder Surgical History (Updated 11/05/20 @ 20:38 by Anne Marie Castano PA-C) Surgical history unknown Family History (Updated 11/05/20 @ 20:38 by Anne Marie Eyad, PA-C) Other Family history unknown Social History Smoking Status: Unknown if ever smoked Communication Ability: Impaired Communication Ability Comment: majority nonverbal, mumbles words Border Machine Operator Required: No Beliefs That Will Affect Care: None marital status: Unknown Current Living Situation: Personal Care Facility Other Information That Helps Us Care for You: No Feels Safe at Home: Yes Assistive Devices: Glasses Assistive Devices Comment: unknown Review of Systems Review of Systems: Unobtainable due to cognitive status Physical Exam Constitutional: well developed, + acute distress (some agitation on my eval) and + thin Eyes: EOM intact bilaterally ENMT: Ears: no external ear abnormality Nose: no external nose abnormality Mouth: + dry oral mucous membranes Neck: no nuchal rigidity Respiratory: normal respiratory effort Auscultation: lungs clear to auscultation bilaterally and + diminished lung sounds Cardiovascular: Rate/Rhythm: regular rate and regular rhythm Extremities: no edema Gastrointestinal (Abdomen): Inspection/Auscultation: normal bowel sounds Percussion/Palpation: abdomen soft; abdomen nontender Musculoskeletal: Extremities: strength 5/5 throughout Skin: no rashes, warm and dry + turgor decreased Neurologic: awake Speech / Cognition: + abnormal cognition Motor/Sensory: + abnormal movement romo, fluent though limited and incoherent/not full sentence or appropriate speech, no tremor; very restless/ slightly agitated Psychiatric: Orientation: alert Motor Behavior: + psychomotor agitation Results & Data ([facility]) Vital Signs (Past 12 Hours) Vital Signs Temp Pulse Pulse Resp BP Pulse Ox 11/06/20 07:33 73 18 109/60 92 11/06/20 07:14 77 11/06/20 04:00 36.6 C 71 18 115/69 93 11/06/20 00:08 86 11/05/20 23:18 36.6 C 79 18 101/56 L 96 11/05/20 22:23 92 H Laboratory Results 11/06/20 07:42 11/06/20 06:17 Urine Color Dark Yellow Urine Appearance Turbid A (Clear) Urine pH 8.0 H (4.5-7.5) Ur Specific [place] 1.023 (1.000-1.030) Urine Protein 2+ H (Negative) Urine Glucose (UA) Negative (Negative) Urine Ketones Trace H (Negative) Urine Blood 2+ H (Negative) Urine Nitrite Negative (Negative) Urine Bilirubin Negative (Negative) Urine Urobilinogen Negative (Negative) Ur Leukocyte Esterase 1+ H (Negative) Urine WBC (Auto) >30 H (0-5) /hpf Urine RBC (Auto) 10-30 H (0-4) /hpf U Hyaline Cast (Auto) 1-5 (0-5) /lpf U Epithel Cells (Auto) 20-30 H (0-5) /lpf Urine Bacteria (Auto) 4+ H (Negative) Urine Yeast Not Reportable SARS-CoV-2 Ag (Rapid) (Negative) Blood and urine cultures pending/no growth to date. Urine culture is a straight cath vanco 17.7 this am 8hrs after first dose Covid neg here but + at her facility prior to admission Diagnostic Findings CT abdomen pelvis Lung bases: The heart is normal in size noting trace pericardial effusion. There are coronary artery calcifications. There is subpleural groundglass consolidation at the right lung base. Minimal groundglass consolidation is noted in the lingula. No pleural effusion is seen. There is a large hiatal hernia. Liver: The unenhanced liver is normal in size, contour, and attenuation. There is no intrahepatic biliary ductal dilatation. Gallbladder: The gallbladder is distended but otherwise normal as imaged.. Spleen: Normal in size and attenuation. Pancreas: The unenhanced pancreas is atrophic and grossly unremarkable. Adrenal glands: Unremarkable. Kidneys: The unenhanced kidneys demonstrate cortical atrophy and are without hydronephrosis. There are no renal calculi identified. Bilateral renal cysts measure up to 3 cm. Abdominal vasculature: There is advanced atherosclerotic calcification and mild ectasia of the abdominal aorta. Bowel: There is rectosigmoid fecal retention and moderate constipation. No bowel obstruction is seen. The appendix is not visualized. Peritoneum: There is no intraperitoneal free air or abdominal ascites. Lymphadenopathy: None. Pelvic viscera: The bladder is grossly unremarkable. The uterus is surgically absent. No adnexal lesion is seen. Skeletal structures: The skeletal structures are osteopenic. There is moderate to advanced lumbosacral spondylosis. A chronic appearing compression deformities noted in T11. No lytic or blastic lesions are seen. IMPRESSION: 1. Suboptimal examination without oral and IV contrast. There is also significant streak and motion artifact 2. There is groundglass consolidation at both lung bases, right greater than left. This is typical for an infectious/inflammatory pneumonitis and clinical correlation will be required. 3. There are no acute infectious or inflammatory findings in the abdomen or pelvis. 4. There is rectosigmoid fecal retention and moderate constipation. No bowel obstruction is seen. 5. The gallbladder is distended but otherwise normal as imaged. Consider right upper quadrant ultrasound if there is clinical concern for biliary pathology. 6. Large hiatal hernia. 7. Additional findings as above. CXR Peripheral hazy airspace opacities within the right midlung zone and bilateral lung bases suggestive of a viral pneumonia. (1) Sepsis Acute renal failure type: unspecified Sepsis acute organ dysfunction status: with acute organ dysfunction Sepsis type: sepsis due to unspecified organism Severe sepsis acute organ dysfunction type: acute renal failure Severe sepsis shock status: without septic shock Qualified Code(s): A41.9 - Sepsis, unspecified organism; R65.20 - Severe sepsis without septic shock; N17.9 - Acute kidney failure, unspecified
--- NOTE | 2020-11-06 10:34 | Hospitalist Progress Note ---
Date of Service November 06, 2020 Assessment & Plan (1) Sepsis: (2) Urinary tract infection: per admitting service notes: This is an 85-year-old female with PMH of advanced dementia, mood disorder, recent UTI who presents from [facility] in [place] with gradual decline in UTI. 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 Urine culture ordered- added blood cx, lactate, procal -Prescribed Bactrim on 10/24 at [facility] but reportedly refusing abx in setting of 3 week gradual decline, per facility -Continue empiric abx with broad spectrum zosyn, vanc. MRSA swab pending, follow cultures and deescalate abx as appropriate -CT abd/pelvis without evidence of urinary obstruction. Bladder scan PRN 11/06 afebrile cultures pending continue empiric Zosyn d/c Vanco COVID 19 Pneumonia report from SNF revealed (+) Covid 19 Ag and RNA on admission negative CT abd/pelv: bilateral groundglass opacities no hypoxia noted supportive care for now monitor closely (3) Hypernatremia: (4) Generalized weakness: (5) Dehydration: per admitting service notes: Na of 151, Cl 118 in setting of poor PO intake -Received 2 L bolus of NSS in ED. Repeating BMP and will then order additional fluids 11/06 Nephro consulted D5W ordered monitor (6) Acute renal failure: per admitting service notes: Cr elevated at 2.14, BUN 51. Unsure of renal function baseline - requested records from Assisted Living facility -Expect improvement with IV fluids, Ct abd/pelvis without evidence of urinary obstruction 11/06 Crea improving monitor (7) Ground glass opacity present on imaging of lung: per #1 (8) Constipation: CT abd/pelvis with rectosigmoid fecal retention and moderate constipation. No bowel obstruction is seen -Ordered Fleet enema, continue IV fluids (9) Mood disorder: Continue SSRI, Seroquel (10) Advanced dementia: Nonverbal at baseline. (11) Goals of care, counseling/discussion: per admitting service notes; Discussed with YANELI Bain ([phone]) regarding goals of care. He is one of 3 POAs. Confirmed patient as a DNR/DNI. Ok with fluids and antibiotics. Agreeable to palliative care consult to further determine goals of care. DVT Ppx: SQ heparin Code status: DNR/DNI PCP: Pedro Pablo Floyd) Dispo: Admitted to [facility]. Discharge planning, PT and OT ordered for when patient medically appropriate for return to [facility] Requested faxed documentation from Assisted Living Facility. Will update problem list with info provided. Admission and Anticipated Discharge Date Admission Date: November 05, 2020 Subjective ff up for sepsis, UTI, COVID 19 seen resting in bed, resting awake, but appears weak, anxious non verbal does not follow commands, but mostly cooperative during exam not in distress, breathing with no effort, on room air not in pain did not participate with speech therapist no other symptoms/signs noted Review of Systems Review of Systems: All systems reviewed & are unremarkable except as noted in Subjective Physical Exam Physical Exam: General- oriented x 0, not in distress, breathing with no effort or accessory muscle use Eyes- anicteric Neck- no JVD Lungs- mild rhonchi right base, clear on the left no wheezing Heart- normal rate, regular rhythm; no murmurs Abdomen- normal bowel sounds, nondistended, soft, nontender Extremities- no pretibial edema, no calf tenderness Neuro- alert, oriented x 0; no gross focal neurologic deficits Skin- warm & dry Results & Data Results & Data ([facility]) Vital Signs (Past 12 Hours) Vital Signs Temp Pulse Pulse Resp BP Pulse Ox 11/06/20 07:33 73 18 109/60 92 11/06/20 07:14 77 11/06/20 04:00 36.6 C 71 18 115/69 93 11/06/20 00:08 86 11/05/20 23:18 36.6 C 79 18 101/56 L 96 (1) Sepsis Sepsis type: sepsis due to unspecified organism Sepsis acute organ dysfunction status: with acute organ dysfunction Severe sepsis acute organ dysfunction type: acute renal failure Acute renal failure type: unspecified Severe sepsis shock status: without septic shock Qualified Code(s): A41.9 - Sepsis, unspecified organism; R65.20 - Severe sepsis without septic shock; N17.9 - Acute kidney failure, unspecified
[2020-11-06] MEDS: DEXTROSE 5% 1,000 ML IV SCH ×2 (10:42→20:05)
[2020-11-06] MEDS: D5W AND 1/2NSS 1,000 ML IV SCH (11:39)
[2020-11-06] MEDS: CITALOPRAM 40 MG TAB PO SCH (12:41)
[2020-11-06] MEDS: QUEtiapine FUMARATE 100 MG TABLET PO SCH ×2 (12:41→20:10)
[2020-11-06] MEDS: PIPERACILLIN/TAZOBACTAM 3.375 GM in DEXTROSE 5% 100 ML IV SCH ×2 (14:05→22:03)
[2020-11-06 22:18] LABS: BUN Creatinine Ratio 16.7 (10-20); Calcium 7.2 mg/dl (8.5-10.1); Creatinine Clr Calc Pharmacy 22.7 ml/min; Est GFR (Non-African American) 34.5; Potassium 3.7 mmol/L (3.5-5.1)
[2020-11-07] MEDS: DEXTROSE 5% 1,000 ML IV SCH ×2 (03:46→12:14)
[2020-11-07] MEDS: PIPERACILLIN/TAZOBACTAM 3.375 GM in DEXTROSE 5% 100 ML IV SCH ×3 (06:07→21:03)
[2020-11-07] MEDS: HEPARIN SOD 5,000 UNIT/0.5 ML VIAL SQ SCH ×2 (06:20→13:58)
[2020-11-07] MEDS: ASCORBIC ACID 500 MG TAB PO SCH ×2 (06:20→19:49)
[2020-11-07] MEDS ORDERED: VANCOMYCIN TROUGH ONE (09:30)
[2020-11-07 10:02] LABS: Hematocrit (blood only) 34.5 % (37-47); Hemoglobin 10.9 g/dL (12.0-16.0); Mean Corpuscular Hgb Conc 31.6 g/dL (32-36); Mean Platelet Volume 10.4 fL (7.4-10.4); Platelet Count 204 K/uL (130-400); RDW Coefficient of Variation 12.7 % (11.5-14.5); RDW Standard Deviation 44.2 fL (36.4-46.3); Red Blood Count 3.63 M/uL (4.2-5.4); White Blood Count 4.86 K/uL (4.8-10.8)
[2020-11-07 10:40] LABS: BUN Creatinine Ratio 14.4 (10-20); Calcium 7.8 mg/dl (8.5-10.1); Creatinine Clr Calc Pharmacy 23.2 ml/min; Est GFR (African American) 41.1; Est GFR (Non-African American) 35.5; Potassium 3.6 mmol/L (3.5-5.1)
--- NOTE | 2020-11-07 11:44 | Nephrology Progress Note ---
Date of Service November 07, 2020 Assessment & Plan (1) ROSA ELENA (acute kidney injury): Baseline renal function unknown. However creatinine improved from 2.1 at admission to 1.3 today, clearly prerenal at least in part. -await OP labs/baseline -daily or at least q48 hr bmp -avoid nephrotoxins >> no longer on vanco -cont IVF as below Will sign off; pls call if ?; no need for renal f/u unless further concerns; if within goals of care, recommend recheck bmp w/in a week of d/c, though w/ her ad vanced dementia, recurrent rosa elena and dehydration may well be normal phase of advancing disease (2) Dehydration: as evidenced by hypernatremia > now resolved w/ aggressive hydration -changed IV fluids to normosol at 80 ml/hr (3) Sepsis: now w/ covid PNA; HR improved overnight but still hypotensive; renal function improving; on zosyn/ivf >> f/u pending cxs Admission and Anticipated Discharge Date Admission Date: November 05, 2020 Subjective seen on evening rounds; aide attempting to bath pt; Review of Systems Review of Systems: Unobtainable due to mental health condition and Unobtainable due to cognitive status Physical Exam Constitutional: well developed, + acute distress (again some agitation on my eval) and + thin lying naked under her gown w/ gown up over her head, resists attempts to peak under gown Eyes: EOM intact bilaterally ENMT: Ears: no external ear abnormality Nose: no external nose abnormality Mouth: oral mucous membranes not dry Neck: no nuchal rigidity Respiratory: normal respiratory effort Auscultation: lungs clear to auscultation bilaterally and + diminished lung sounds Cardiovascular: Rate/Rhythm: regular rate and regular rhythm Extremities: no edema Gastrointestinal (Abdomen): Inspection/Auscultation: normal bowel sounds Percussion/Palpation: abdomen soft; abdomen nontender Musculoskeletal: Extremities: strength 5/5 throughout Skin: no rashes, warm and dry + turgor decreased Neurologic: awake Speech / Cognition: + abnormal cognition Motor/Sensory: + abnormal movement Psychiatric: Orientation: alert Motor Behavior: + psychomotor agitation Results & Data ([facility]) Vital Signs (Past 12 Hours) Vital Signs Temp Pulse Pulse Resp BP Pulse Ox 11/07/20 08:49 36.7 C 67 18 97/52 L 93 11/07/20 07:17 52 L 11/07/20 03:48 35.8 C L 67 18 89/41 L 91 11/07/20 00:01 54 L Laboratory Results 11/07/20 09:39 11/07/20 09:39 (1) Sepsis Acute renal failure type: unspecified Sepsis acute organ dysfunction status: with acute organ dysfunction Sepsis type: sepsis due to unspecified organism Severe sepsis acute organ dysfunction type: acute renal failure Severe sepsis shock status: without septic shock Qualified Code(s): A41.9 - Sepsis, unspecified organism; R65.20 - Severe sepsis without septic shock; N17.9 - Acute kidney failure, unspecified
[2020-11-07] MEDS: CITALOPRAM 40 MG TAB PO SCH (13:30)
[2020-11-07] MEDS: QUEtiapine FUMARATE 100 MG TABLET PO SCH ×2 (13:30→19:49)
[2020-11-07] MEDS: dexAMETHasone 6 MG in SYRINGE 0 ML IV SCH (13:36)
[2020-11-07] MEDS: NORMOSOL-R 1,000 ML IV SCH ×2 (13:46→23:45)
--- NOTE | 2020-11-07 19:25 | Hospitalist Progress Note ---
Date of Service November 07, 2020 Assessment & Plan (1) Sepsis: (2) Urinary tract infection: per admitting service notes: This is an 85-year-old female with PMH of advanced dementia, mood disorder, recent UTI who presents from [facility] in [place] with gradual decline in UTI. 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 Urine culture ordered- added blood cx, lactate, procal -Prescribed Bactrim on 10/24 at [facility] but reportedly refusing abx in setting of 3 week gradual decline, per facility -Continue empiric abx with broad spectrum zosyn, vanc. MRSA swab pending, follow cultures and deescalate abx as appropriate -CT abd/pelvis without evidence of urinary obstruction. Bladder scan PRN 11/07 afebrile cultures pending continue empiric Zosyn COVID 19 Pneumonia report from SNF revealed (+) Covid 19 Ag and RNA on admission negative CT abd/pelv: bilateral groundglass opacities O2 saturation now decreasing to 93% on room air Attempted to call patient's POA Odell over the phone in the morning in the evening, but no answer This is to discuss treatment options for Covid infection Decadron 6 mg IV and remdesivir day #1 started close monitoring of renal function and liver function To prevent further deterioration, including desaturation, hoping to decrease disease duration and mortality risk, Will start Decadron 6 mg IV daily remdesivir day #1 Need to discuss convalescent plasma transfusion with patient's POA when he is available supportive care for now monitor closely (3) Hypernatremia: (4) Generalized weakness: (5) Dehydration: per admitting service notes: Na of 151, Cl 118 in setting of poor PO intake -Received 2 L bolus of NSS in ED. Repeating BMP and will then order additional fluids 11/06 Nephro consulted D5W ordered Sodium now normal Patient still with poor oral intake, most likely secondary to underlying infections Treatment of infections as noted above, will continue to monitor (6) Acute renal failure: per admitting service notes: Cr elevated at 2.14, BUN 51. Unsure of renal function baseline - requested re cords from Assisted Living facility -Expect improvement with IV fluids, Ct abd/pelvis without evidence of urinary obstruction 11/06 Crea improving monitor (7) Ground glass opacity present on imaging of lung: per #1 (8) Constipation: CT abd/pelvis with rectosigmoid fecal retention and moderate constipation. No bowel obstruction is seen -Ordered Fleet enema, continue IV fluids (9) Mood disorder: Continue SSRI, Seroquel (10) Advanced dementia: Nonverbal at baseline. (11) Goals of care, counseling/discussion: per admitting service notes; Discussed with FIDELLamont Bain ([phone]) regarding goals of care. He is one of 3 POAs. Confirmed patient as a DNR/DNI. Ok with fluids and antibiotics. Agreeable to palliative care consult to further determine goals of care. DVT Ppx: SQ heparin Code status: DNR/DNI PCP: Pedro Pablo Floyd) Dispo: Patient is a resident of [facility] Admission and Anticipated Discharge Date Admission Date: November 05, 2020 Subjective Follow-up for COVID-19 infection, sepsis possible UTI, etc. Seen resting in bed, watching TV Patient more alert, less weak appearing, tracks examiner, but nonverbal, does not follow commands Mostly pushes examiner's hands away Not in distress, no signs of pain Declining p.o. intake per balance staff staker No other signs or symptoms noted Review of Systems Review of Systems: All systems reviewed & are unremarkable except as noted in Subjective Physical Exam Physical Exam: General- oriented x 0, not in distress, breathing with no effort or accessory muscle use Eyes- anicteric Neck- no JVD Lungs-mild rales at the right base, no wheezing Heart- normal rate, regular rhythm; no murmurs Abdomen- normal bowel sounds, nondistended, soft, nontender Extremities- no pretibial edema, no calf tenderness Neuro- alert, oriented x 0; nonverbal, no new gross focal neurologic deficits Skin- warm & dry Results & Data Results & Data ([facility]) Vital Signs (Past 12 Hours) Vital Signs Temp Pulse Pulse Pulse Resp BP Pulse Ox 11/07/20 17:00 36.8 C 74 18 109/63 93 11/07/20 16:00 65 11/07/20 12:14 36.3 C L 71 18 102/52 L 94 11/07/20 08:49 36.7 C 67 18 97/52 L 93 Laboratory Results Laboratory Results - last 24 hr 11/06/20 11/07/20 11/07/20 21:45 09:39 09:39 WBC 4.86 RBC 3.63 L Hgb 10.9 L Hct 34.5 L MCV 95.0 MCH 30.0 MCHC 31.6 L RDW Std Deviation 44.2 RDW Coeff of Rigo 12.7 Plt Count 204 MPV 10.4 Sodium 145 142 Potassium 3.7 D 3.6 Chloride 117 H 112 H Carbon Dioxide 23 23 Anion Gap 5.0 7.0 BUN 23 H 19 H Creatinine 1.38 H 1.35 H Est Cr Clr Drug Dosing 22.7 23.2 Est GFR ( Amer) 40.0 41.1 Est GFR (Non-Af Amer) 34.5 35.5 BUN/Creatinine Ratio 16.7 14.4 Glucose 166 H 97 Calcium 7.2 L 7.8 L (1) Sepsis Sepsis type: sepsis due to unspecified organism Sepsis acute organ dysfu nction status: with acute organ dysfunction Severe sepsis acute organ dysfunction type: acute renal failure Acute renal failure type: unspecified Severe sepsis shock status: without septic shock Qualified Code(s): A41.9 - Sepsis, unspecified organism; R65.20 - Severe sepsis without septic shock; N17.9 - Acute kidney failure, unspecified
[2020-11-07] MEDS ORDERED: REMDESIVIR 200 MG in SODIUM CHLORIDE 0.9% 210 ML IV ONE (20:00)
[2020-11-07] MEDS ORDERED: SODIUM CHLORIDE 0.9% 10ML FLUSH IV SCH (22:00)
[2020-11-08] MEDS: PIPERACILLIN/TAZOBACTAM 3.375 GM in DEXTROSE 5% 100 ML IV SCH (05:32)
[2020-11-08] MEDS: ASCORBIC ACID 500 MG TAB PO SCH ×2 (05:49→19:40)
[2020-11-08 07:58] LABS: Albumin Level 2.4 gm/dl (3.4-5.0); BUN Creatinine Ratio 12.2 (10-20); Bilirubin Direct 0.2 mg/dl (0-0.2); Creatinine Clr Calc Pharmacy 26.8 ml/min; Est GFR (African American) 48.9; Est GFR (Non-African American) 42.2
[2020-11-08 08:01] LABS: Bilirubin,Total 0.5 mg/dl (0.2-1); Total Protein 6.6 gm/dl (6.4-8.2)
[2020-11-08] MEDS: HEPARIN SOD 5,000 UNIT/0.5 ML VIAL SQ SCH ×2 (09:10→20:16)
[2020-11-08] MEDS: dexAMETHasone 6 MG in SYRINGE 0 ML IV SCH (09:10)
--- NOTE | 2020-11-08 09:41 | Palliative Care Consultation ---
Date of Consultation November 08, 2020 Assessment & Plan (1) Palliative care encounter: I spoke with Nicola' nephew, Odell Schmitz, who is one of three POAs. The other two are cousins of his who live out of state. He has pretty much been managing her care and consulting with his cousins. He confirms that she would not want CPR or intubation. His hope is that she could go to a SNF or rehab facility for strengthening after hospital discharge. We did discuss that rehab potential is limited in folks with dementia who have had severe illness and hospitalization. She had been ambulating and eating independently with help for dressing and bathing prior to admission. We did discuss her decreased appetite which is not unusual given her illness and hospitalization. This may improve and we will continue to encourage her to eat and drink. I did ask him if Nicola had ever discussed feeding tubes or other types of care that she would or would not want. He says that she had not specified this and he would want to discuss with his cousins. (2) Anorexia: Not constipated. No difficulty swallowing. Monitor and encourage po intake. Could consider ensure or nutritional supplement to boost nutritional intake. History of Present Illness Reason for Consultation: goals of care Requesting Physician: Dr. Tse Attending Physician: Scooter Tse MD History of Present Illness 85 yo lady with advanced dementia who is a resident at [facility] assisted living facility. She has had progressive functional decline since a fall in September. She was treated for a UTI at that time with bactrim but had been refusing to take medication. She was subsequently found to have Covid 19 with associated pneumonitis and is being treated with remdesivir and dexamethasone. She is awake and alert but essentially nonverbal. She does not appear to be short of breath on room air. She is pleasant but resistive to care at times. She does not answer questions. We have been consulted to assist with goals of care discussion. Allergies Allergy/AdvReac Type Severity Reaction Status Date / Time codeine Allergy Unknown ON Verified 11/05/20 15:41 [facility] MED LIST Home Medications Medication Instructions Recorded Confirmed Type acetaminophen [Arthritis Pain 650 mg PO BID 11/05/20 11/05/20 History Relief (acetam)] acetaminophen [Tylenol] 650 mg PO Q6H PRN 11/05/20 11/05/20 History ascorbic acid (vitamin C) [Vitamin 500 mg PO BID 11/05/20 11/05/20 History C] camphor-menthol [Biofreeze Pain 1 applic TOPICAL QID PRN 11/05/20 11/05/20 History Relieving] citalopram 40 mg PO QDL 11/05/20 11/05/20 History food supplemt, lactose-reduced 1 ea PO DAILY PRN 11/05/20 11/05/20 History [Boost] lorazepam 0.5 mg PO WK 11/05/20 11/05/20 History nystatin 1 applic TOPICAL TID PRN 11/05/20 11/05/20 History quetiapine [Seroquel] 150 mg PO BID 11/05/20 11/05/20 History silver sulfadiazine 1 applic TOPICAL BID PRN 11/05/20 11/05/20 History sulfamethoxazole-trimethoprim 20 ml PO BID 11/05/20 11/05/20 History trolamine salicylate [Aspercreme] 1 applic TOPICAL BID PRN 11/05/20 11/05/20 History zinc gluconate 50 mg PO BID 11/05/20 11/05/20 History Patient History Medical History Advanced dementia DNR (do not resuscitate) Mood disorder Surgical History Surgical history unknown Family History Other Family history unknown Social History Smoking Status: Unknown if ever smoked Communication Ability: Impaired Communication Ability Comment: majority nonverbal, mumbles words Pilot Safety Inspector Required: No Beliefs That Will Affect Care: None marital status: Unknown Current Living Situation: Personal Care Facility Other Information That Helps Us Care for You: No Feels Safe at Home: Yes Assistive Devices: None Assistive Devices Comment: unknown Review of Systems Review of Systems: Unobtainable due to cognitive status [place] Symptom Assessment Scale PainAD 0/3 Dyspnea by RDOS 0/3 Anorexia 3/3 Drowsiness 0/3 Constipation 0/3 Palliative Performance Scale 30% Physical Exam Constitutional: no acute distress Eyes: EOM intact bilaterally Respiratory: normal respiratory effort; no labored breathing Cardiovascular: Extremities: no edema Gastrointestinal (Abdomen): Inspection/Auscultation: abdomen not distended Percussion/Palpation: abdomen soft; abdomen nontender Musculoskeletal: muscle atrophy Skin: no rashes, warm and dry Neurologic: no focal motor deficits Psychiatric: Orientation: alert; + not oriented x 3 Results & Data ([facility]) Vital Signs (Past 12 Hours) Vital Signs Temp Pulse Pulse Resp BP Pulse Ox 11/08/20 09:05 97.9 F 67 18 116/51 L 93 11/08/20 00:06 96.4 F L 60 18 132/70 11/07/20 23:31 72 PG Care Time/CCT Total # of Minutes Spent Total Time Spent with Patient: Total time spent is greater than 50% in coordination of care (as documented) at patient's floor/unit and/or counseling patient: Total time spent is 65 minutes with more than 50% of time spent on discussing goals of care and symptom management. Coding Level of Care Code 37671 Inpt Consult Level 3 Diagnoses Palliative care encounter Z51.5 Anorexia R63.0 Time Spent (min) 65
[2020-11-08] MEDS: CITALOPRAM 40 MG TAB PO SCH (12:35)
[2020-11-08] MEDS: QUEtiapine FUMARATE 100 MG TABLET PO SCH ×2 (12:35→19:40)
[2020-11-08] MEDS: NORMOSOL-R 1,000 ML IV SCH (13:00)
--- NOTE | 2020-11-08 19:22 | Hospitalist Progress Note ---
Date of Service November 08, 2020 Assessment & Plan (1) Sepsis: (2) Urinary tract infection: per admitting service notes: This is an 85-year-old female with PMH of advanced dementia, mood disorder, recent UTI who presents from [facility] in [place] with gradual decline in UTI. 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 Urine culture ordered- added blood cx, lactate, procalcitonin -Prescribed Bactrim on 10/24 at [facility] but reportedly refusing abx in setting of 3 week gradual decline, per facility -Continue empiric abx with broad spectrum zosyn, vanc. MRSA swab pending, follow cultures and deescalate abx as appropriate -CT abd/pelvis without evidence of urinary obstruction. Bladder scan PRN 11/08 afebrile blood cultures: negative d/c Zosyn COVID 19 Pneumonia report from SNF revealed (+) Covid 19 Ag and RNA on admission negative CT abd/pelv: bilateral groundglass opacities O2 saturation now decreasing to 93% on room air Attempted to call patient's POA Odell over the phone in the morning in the evening, but no answer This is to discuss treatment options for Covid infection Decadron 6 mg IV and remdesivir day #1 started close monitoring of renal function and liver function To prevent further deterioration, including desaturation, hoping to decrease disease duration and mortality risk, Will start Decadron 6 mg IV daily remdesivir day #1 Need to discuss convalescent plasma transfusion with patient's POA when he is available supportive care for now monitor closely 11/08 now on 95% room air continue Decadron and Remdesivir Day 2 clinically, more alert, cooperative, interactive but appetite still poor continue to monitor response to above treatment (3) Hypernatremia: (4) Generalized weakness: (5) Dehydration: per admitting service notes: Na of 151, Cl 118 in setting of poor PO intake -Received 2 L bolus of NSS in ED. Repeating BMP and will then order additional fluids Nephro consulted D5W ordered Sodium now normal Patient still with poor oral intake, most likely secondary to underlying Covid infection will continue to monitor response (6) Acute renal failure: per admitting service notes: Cr elevated at 2.14, BUN 51. Unsure of renal function baseline - requested records from Assisted Living facility -Expect improvement with IV fluids, Ct abd/pelvis without evidence of urinary obstruction crea now 1.17 (7) Ground glass opacity present on imaging of lung: per #1 (8) Constipation: CT abd/pelvis with rectosigmoid fecal retention and moderate constipation. No bowel obstruction is seen -Ordered Fleet enema, continue IV fluids (+) BM's (9) Mood disorder: Continue SSRI, Seroquel (10) Advanced dementia: Nonverbal at baseline. (11) Goals of care, counseling/discussion: per admitting service notes; Discussed with POLamont Bain ([phone]) regarding goals of care. He is one of 3 POAs. Confirmed patient as a DNR/DNI. Ok with fluids and antibiotics. Agreeable to palliative care consult to further determine goals of care. DVT Ppx: SQ heparin Code status: DNR/DNI PCP: [place]am[place] (Tyrone) Dispo: Patient is a resident of [facility] Admission and Anticipated Discharge Date Admission Date: November 05, 2020 Subjective Follow-up for COVID-19 infection, sepsis, etc. Seen sitting up in bed, more awake and alert, pleasant, more cooperative, cheerful Tries to talk more No signs of acute respiratory distress, or pain Appetite still poor, declining p.o. intake No other signs or symptoms noted Review of Systems Review of Systems: All systems reviewed & are unremarkable except as noted in Subjective Physical Exam Physical Exam: General- oriented x 0, not in distress, breathing with no effort or accessory muscle use Eyes- anicteric Neck- no JVD Lungs-mild rales at the bases, no wheezing, good air entry bilaterally Heart- normal rate, regular rhythm; no murmurs Abdomen- normal bowel sounds, nondistended, soft, nontender Extremities- no pretibial edema, no calf tenderness Neuro- alert, oriented x0; no new gross focal neurologic deficits Skin- warm & dry Results & Data Results & Data ([facility]) Vital Signs (Past 12 Hours) Vital Signs Temp Pulse Pulse Resp BP Pulse Ox 11/08/20 14:54 36.6 C 79 18 95/59 L 95 11/08/20 14:24 80 11/08/20 12:16 36.5 C 60 18 123/61 95 11/08/20 09:05 36.6 C 67 18 116/51 L 93 11/08/20 08:00 50 L Laboratory Results Laboratory Results - last 24 hr 11/08/20 07:16 Sodium 145 Potassium 4.0 Chloride 114 H Carbon Dioxide 24 Anion Gap 7.0 BUN 14 Creatinine 1.17 Est Cr Clr Drug Dosing 26.8 Est GFR ( Amer) 48.9 Est GFR (Non-Af Amer) 42.2 BUN/Creatinine Ratio 12.2 Glucose 129 H Calcium 8.0 L Total Bilirubin 0.5 Direct Bilirubin 0.2 AST 31 ALT 22 Alkaline Phosphatase 73 Total Protein 6.6 Albumin 2.4 L (1) Sepsis Sepsis type: sepsis due to unspecified organism Sepsis acute organ dysfunction status: with acute organ dysfunction Severe sepsis acute organ dysfunction type: acute renal failure Acute renal failure type: unspecified Severe sepsis shock status: without septic shock Qualified Code(s): A41.9 - Sepsis, unspecified organism; R65.20 - Severe sepsis without septic shock; N17.9 - Acute kidney failure, unspecified
[2020-11-08] MEDS: REMDESIVIR 100 MG in SODIUM CHLORIDE 0.9% 230 ML IV SCH (20:10)
[2020-11-08] MEDS: SODIUM CHLORIDE 0.9% 10ML FLUSH IV SCH (21:18)
[2020-11-09] MEDS: NORMOSOL-R 1,000 ML IV SCH ×2 (03:20→21:28)
[2020-11-09] MEDS: ASCORBIC ACID 500 MG TAB PO SCH ×2 (06:33→20:04)
[2020-11-09 08:39] LABS: Albumin Level 2.4 gm/dl (3.4-5.0); BUN Creatinine Ratio 21.5 (10-20); Bilirubin Direct 0.1 mg/dl (0-0.2); Calcium 7.9 mg/dl (8.5-10.1); Creatinine Clr Calc Pharmacy 35.2 ml/min; Est GFR (Non-African American) 58.7; Potassium 3.5 mmol/L (3.5-5.1)
[2020-11-09 08:42] LABS: Bilirubin,Total 0.4 mg/dl (0.2-1); Total Protein 6.2 gm/dl (6.4-8.2)
[2020-11-09] MEDS: HEPARIN SOD 5,000 UNIT/0.5 ML VIAL SQ SCH ×2 (10:56→20:04)
[2020-11-09] MEDS: dexAMETHasone 6 MG in SYRINGE 0 ML IV SCH (12:36)
[2020-11-09] MEDS: QUEtiapine FUMARATE 100 MG TABLET PO SCH ×2 (12:47→20:00)
[2020-11-09] MEDS: CITALOPRAM 40 MG TAB PO SCH (12:47)
--- NOTE | 2020-11-09 19:51 | Hospitalist Progress Note ---
Date of Service November 09, 2020 Assessment & Plan (1) Sepsis: (2) Urinary tract infection: per admitting service notes: This is an 85-year-old female with PMH of advanced dementia, mood disorder, recent UTI who presents from [facility] in [place] with gradual decline in UTI. 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 Urine culture ordered- added blood cx, lactate, procalcitonin -Prescribed Bactrim on 10/24 at [facility] but reportedly refusing abx in setting of 3 week gradual decline, per facility -Continue empiric abx with broad spectrum zosyn, vanc. MRSA swab pending, follow cultures and deescalate abx as appropriate -CT abd/pelvis without evidence of urinary obstruction. Bladder scan PRN 11/09 afebrile blood cultures: negative d/c Zosyn COVID 19 Pneumonia report from SNF revealed (+) Covid 19 Ag and RNA on admission negative CT abd/pelv: bilateral groundglass opacities O2 saturation now decreasing to 93% on room air Attempted to call patient's POA Odell over the phone in the morning in the evening, but no answer This is to discuss treatment options for Covid infection Decadron 6 mg IV and remdesivir day #1 started close monitoring of renal function and liver function To prevent further deterioration, including desaturation, hoping to decrease disease duration and mortality risk, Will start Decadron 6 mg IV daily remdesivir day #1 Need to discuss convalescent plasma transfusion with patient's POA when he is available supportive care for now monitor closely 11/09 now on 94-97% room air continue Decadron and Remdesivir Day 3 clinically, more alert, cooperative, interactive but appetite still poor continue to monitor response to above treatment (3) Hypernatremia: (4) Generalized weakness: (5) Dehydration: Anorexia per admitting service notes: Na of 151, Cl 118 in setting of poor PO intake -Received 2 L bolus of NSS in ED. Repeating BMP and will then order additional fluids Nephro consulted D5W ordered Sodium now normal Patient still with poor oral intake, most likely secondary to underlying Covid infection will continue to monitor response (6) Acute renal failure: per admitting service notes: Cr elevated at 2.14, BUN 51. Unsure of renal function baseline - requested records from Assisted Living facility -Expect improvement with IV fluids, Ct abd/pelvis without evidence of urinary obstruction crea now 1.17 (7) Ground glass opacity present on imaging of lung: per #1 (8) Constipation: CT abd/pelvis with rectosigmoid fecal retention and moderate constipation. No bowel obstruction is seen -Ordered Fleet enema, continue IV fluids (+) BM's (9) Mood disorder: Continue SSRI, Seroquel (10) Advanced dementia: Nonverbal at baseline. (11) Goals of care, counseling/discussion: per admitting service notes; Discussed with POLamont Bain ([phone]) regarding goals of care. He is one of 3 POAs. Confirmed patient as a DNR/DNI. Ok with fluids and antibiotics. Agreeable to palliative care consult to further determine goals of care. DVT Ppx: SQ heparin Code status: DNR/DNI PCP: Pedro Pablo Floyd) Dispo: Patient is a resident of [facility] Admission and Anticipated Discharge Date Admission Date: November 05, 2020 Subjective Follow-up for COVID-19 pneumonia, anorexia Seen in bed, covered in blankets Patient is awake and alert, tries to talk and words, but confused Not in distress No signs of pain Had 1 apple juice today Otherwise declines food Review of Systems Review of Systems: All systems reviewed & are unremarkable except as noted in Subjective Physical Exam Physical Exam: General- oriented x 0, not in distress,breathing with no effort or accessory muscle use Eyes- anicteric Neck- no JVD Lungs- clear breath sounds bilaterally Heart- normal rate, regular rhythm; no murmurs Abdomen- normal bowel sounds, nondistended, soft, nontender Extremities- no pretibial edema, no calf tenderness Neuro- alert, oriented x 0; no gross focal neurologic deficits Skin- warm & dry Results & Data Results & Data ([facility]) Vital Signs (Past 12 Hours) Vital Signs Temp Pulse Resp BP BP Pulse Ox 11/09/20 15:24 36.6 C 57 L 16 110/69 97 11/09/20 12:48 36.3 C L 76 18 108/55 L 94 11/09/20 09:00 36.5 C 65 18 92/58 L 96 Laboratory Results Laboratory Results - last 24 hr 11/09/20 07:30 Sodium 144 Potassium 3.5 Chloride 114 H Carbon Dioxide 22 Anion Gap 8.0 BUN 19 H Creatinine 0.89 Est Cr Clr Drug Dosing 35.2 Est GFR ( Amer) 68.0 Est GFR (Non-Af Amer) 58.7 BUN/Creatinine Ratio 21.5 H Glucose 87 Calcium 7.9 L Total Bilirubin 0.4 Direct Bilirubin 0.1 AST 32 ALT 22 Alkaline Phosphatase 64 Total Protein 6.2 L Albumin 2.4 L (1) Sepsis Acute renal failure type: unspecified Sepsis acute organ dysfunction status: with acute organ dysfunction Sepsis type: sepsis due to unspecified organism Severe sepsis acute organ dysfunction type: acute renal failure Severe sepsis shock status: without septic shock Qualified Code(s): A41.9 - Sepsis, unspecified organism; R65.20 - Severe sepsis without septic shock; N17.9 - Acute kidney failure, unspecified
[2020-11-09] MEDS: REMDESIVIR 100 MG in SODIUM CHLORIDE 0.9% 230 ML IV SCH (20:03)
[2020-11-09] MEDS: SODIUM CHLORIDE 0.9% 10ML FLUSH IV SCH (20:05)
[2020-11-10] MEDS: NORMOSOL-R 1,000 ML IV SCH (05:52)
[2020-11-10] MEDS: ASCORBIC ACID 500 MG TAB PO SCH ×2 (05:53→19:47)
[2020-11-10 06:38] LABS: Albumin Level 2.4 gm/dl (3.4-5.0); Bilirubin Direct 0.1 mg/dl (0-0.2); Bilirubin,Total 0.4 mg/dl (0.2-1)
[2020-11-10] MEDS: dexAMETHasone 6 MG in SYRINGE 0 ML IV SCH (07:32)
[2020-11-10] MEDS: HEPARIN SOD 5,000 UNIT/0.5 ML VIAL SQ SCH ×2 (07:33→21:03)
[2020-11-10] MEDS: CITALOPRAM 40 MG TAB PO SCH ×2 (12:46→13:53)
[2020-11-10] MEDS: QUEtiapine FUMARATE 100 MG TABLET PO SCH ×3 (12:46→19:47)
[2020-11-10] MEDS: SODIUM CHLORIDE 0.9% 10ML FLUSH IV SCH (19:48)
[2020-11-10] MEDS: REMDESIVIR 100 MG in SODIUM CHLORIDE 0.9% 230 ML IV SCH (19:48)
--- NOTE | 2020-11-10 20:43 | Hospitalist Progress Note ---
Date of Service November 10, 2020 Assessment & Plan (1) Sepsis: (2) Urinary tract infection: per admitting service notes: This is an 85-year-old female with PMH of advanced dementia, mood disorder, recent UTI who presents from [facility] in [place] with gradual decline in UTI. 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 Urine culture ordered- added blood cx, lactate, procalcitonin -Prescribed Bactrim on 10/24 at [facility] but reportedly refusing abx in setting of 3 week gradual decline, per facility -Continue empiric abx with broad spectrum zosyn, vanc. MRSA swab pending, follow cultures and deescalate abx as appropriate -CT abd/pelvis without evidence of urinary obstruction. Bladder scan PRN 11/10 afebrile blood cultures: negative d/c Zosyn COVID 19 Pneumonia report from [facility] revealed (+) Covid 19 Ag and RNA on admission negative CT abd/pelv: bilateral groundglass opacities O2 saturation now decreasing to 93% on room air Attempted to call patient's POA Odell over the phone in the morning in the evening, but no answer This is to discuss treatment options for Covid infection Decadron 6 mg IV and remdesivir day #1 started close monitoring of renal function and liver function To prevent further deterioration, including desaturation, hoping to decrease disease duration and mortality risk, Will start Decadron 6 mg IV daily remdesivir day #1 Need to discuss convalescent plasma transfusion with patient's POA when he is available supportive care for now monitor closely 11/10 now on 94 room air continue Decadron and Remdesivir Day 4- unable to obtain IV access, re-assess tomorrow appetite still poor continue to monitor response to above treatment tried to call nephew for the past 2 days for update, no answer (3) Hypernatremia: (4) Generalized weakness: (5) Dehydration: Anorexia per admitting service notes: Na of 151, Cl 118 in setting of poor PO intake -Received 2 L bolus of NSS in ED. Repeating BMP and will then order additional fluids Nephro consulted D5W ordered Sodium now normal Patient still with poor oral intake, most likely secondary to underlying Covid infection will continue to monitor response (6) Acute renal failure: per admitting service notes: Cr elevated at 2.14, BUN 51. Unsure of renal function baseline - requested records from Assisted Living facility -Expect improvement with IV fluids, Ct abd/pelvis without evidence of urinary obstruction crea now 1.17 (7) Ground glass opacity present on imaging of lung: per #1 (8) Constipation: CT abd/pelvis with rectosigmoid fecal retention and moderate constipation. No bowel obstruction is seen -Ordered Fleet enema, continue IV fluids (+) BM's (9) Mood disorder: Continue SSRI, Seroquel (10) Advanced dementia: Nonverbal at baseline. (11) Goals of care, counseling/discussion: per admitting service notes; Discussed with FIDELLamont Odell ([phone]) regarding goals of care. He is one of 3 POAs. Confirmed patient as a DNR/DNI. Ok with fluids and antibiotics. Agreeable to palliative care consult to further determine goals of care. DVT Ppx: SQ heparin Code status: DNR/DNI PCP: Pedro Pablo Floyd) Dispo: Patient is a resident of [facility] Admission and Anticipated Discharge Date Admission Date: November 05, 2020 Subjective ff up for covid pneumonia, etc patient curled up, alert, but appears anxious confused no signs of distress still not eating/drinking unable to obtain IV site today no other issues Review of Systems Review of Systems: Unobtainable due to cognitive status Physical Exam Physical Exam: General- oriented x 0, not in distress,breathing with no effort or accessory muscle use Eyes- anicteric Neck- no JVD Lungs- clear breath sounds bilaterally Heart- normal rate, regular rhythm; no murmurs Abdomen- normal bowel sounds, nondistended, soft, nontender Extremities- no pretibial edema, no calf tenderness Neuro- alert, oriented x 0; no new gross focal neurologic deficits Skin- warm & dry (1) Sepsis Sepsis type: sepsis due to unspecified organism Sepsis acute organ dysfunction status: with acute organ dysfunction Severe sepsis acute organ dysfunction type: acute renal failure Acute renal failure type: unspecified Severe sepsis shock status: without septic shock Qualified Code(s): A41.9 - Sepsis, unspecified organism; R65.20 - Severe sepsis without septic shock; N17.9 - Acute kidney failure, unspecified
[2020-11-11] MEDS: NORMOSOL-R 1,000 ML IV SCH (05:22)
[2020-11-11] MEDS: ASCORBIC ACID 500 MG TAB PO SCH ×2 (06:10→18:32)
[2020-11-11] MEDS: dexAMETHasone 6 MG in SYRINGE 0 ML IV SCH (08:17)
[2020-11-11] MEDS: HEPARIN SOD 5,000 UNIT/0.5 ML VIAL SQ SCH ×2 (08:18→21:34)
[2020-11-11 09:14] LABS: Albumin Level 2.8 gm/dl (3.4-5.0); Bilirubin Direct 0.2 mg/dl (0-0.2); Bilirubin,Total 0.7 mg/dl (0.2-1); Total Protein 6.8 gm/dl (6.4-8.2)
[2020-11-11] MEDS: CITALOPRAM 40 MG TAB PO SCH ×2 (11:11→11:16)
[2020-11-11 12:58] LABS: BUN Creatinine Ratio 20.1 (10-20); Calcium 8.2 mg/dl (8.5-10.1); Creatinine Clr Calc Pharmacy 35.7 ml/min; Est GFR (African American) 66.2; Est GFR (Non-African American) 57.1; Potassium 3.1 mmol/L (3.5-5.1)
[2020-11-11] MEDS: QUEtiapine FUMARATE 100 MG TABLET PO SCH ×2 (13:09→18:31)
--- NOTE | 2020-11-11 18:34 | Hospitalist Progress Note ---
Date of Service November 11, 2020 Assessment & Plan (1) Sepsis: (2) Urinary tract infection: per admitting service notes: This is an 85-year-old female with PMH of advanced dementia, mood disorder, recent UTI who presents from [facility] in [place] with gradual decline in UTI. 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 Urine culture ordered- added blood cx, lactate, procalcitonin -Prescribed Bactrim on 10/24 at [facility] but reportedly refusing abx in setting of 3 week gradual decline, per facility -Continue empiric abx with broad spectrum zosyn, vanc. MRSA swab pending, follow cultures and deescalate abx as appropriate -CT abd/pelvis without evidence of urinary obstruction. Bladder scan PRN 11/11 afebrile blood cultures: negative d/c Zosyn COVID 19 Pneumonia report from SNF revealed (+) Covid 19 Ag and RNA on admission negative CT abd/pelv: bilateral groundglass opacities O2 saturation now decreasing to 93% on room air Attempted to call patient's POA Odell over the phone in the morning in the evening, but no answer This is to discuss treatment options for Covid infection Decadron 6 mg IV and remdesivir day #1 started close monitoring of renal function and liver function To prevent further deterioration, including desaturation, hoping to decrease disease duration and mortality risk, Will start Decadron 6 mg IV daily remdesivir day #1 Need to discuss convalescent plasma transfusion with patient's POA when he is available supportive care for now monitor closely 11/11 Patient now saturating 95% room air Given Decadron and Remdesivir Day 4- unable to obtain IV access appetite still poor Overall, patient has declined p.o. intake while in hospital Patient also has no IV access despite multiple attempts At this point, recommend to transition patient to p.o. remdesivir, and transition to halfway facility, For patient's comfort and quality of life (3) Hypernatremia: (4) Generalized weakness: (5) Dehydration: Anorexia per admitting service notes: Na of 151, Cl 118 in setting of poor PO intake -Received 2 L bolus of NSS in ED. Repeating BMP and will then order additional fluids Nephro consulted D5W ordered Sodium now normal Patient still with poor oral intake, most likely secondary to underlying Covid infection Patient's overall disposition and appetite may improve in a halfway facility setting (6) Acute renal failure: per admitting service notes: Cr elevated at 2.14, BUN 51. Unsure of renal function baseline - requested records from Assisted Living facility -Expect improvement with IV fluids, Ct abd/pelvis without evidence of urinary obstruction crea now 1.17 (7) Ground glass opacity present on imaging of lung: per #1 (8) Constipation: CT abd/pelvis with rectosigmoid fecal retention and moderate constipation. No bowel obstruction is seen -Ordered Fleet enema, continue IV fluids (+) BM's (9) Mood disorder: Continue SSRI, Seroquel (10) Advanced dementia: Nonverbal at baseline. (11) Goals of care, counseling/discussion: per admitting service notes; Discussed with YANELI Bain ([phone]) regarding goals of care. He is one of 3 POAs. Confirmed patient as a DNR/DNI. Ok with fluids and antibiotics. Agreeable to palliative care consult to further determine goals of care. DVT Ppx: SQ heparin Code status: DNR/DNI PCP: Pedro Pablo Floyd) Dispo: Patient is a resident of [facility] Admission and Anticipated Discharge Date Admission Date: November 05, 2020 Subjective Follow-up for COVID-19 pneumonia, etc. Seen resting in bed, alert, pleasant, smiling Pleasantly confused Not in distress, appears comfortable Per RN, patient declining p.o. intake No other signs or symptoms noted Review of Systems Review of Systems: All systems reviewed & are unremarkable except as noted in Subjective Physical Exam Physical Exam: General- oriented x 0, not in distress Eyes- anicteric Neck- no JVD Lungs- clear breath sounds bilaterally, no crackles or wheezing noted Heart- normal rate, regular rhythm; no murmurs Abdomen- normal bowel sounds, nondistended, soft, nontender Extremities- no pretibial edema, no calf tenderness Neuro- alert, oriented x0; no gross focal neurologic deficits Skin- warm & dry Results & Data Results & Data ([facility]) Laboratory Results Laboratory Results - last 24 hr 11/10/20 11/11/20 11/11/20 17:00 05:58 12:19 Sodium 143 Potassium 3.1 L Chloride 109 H Carbon Dioxide 27 Anion Gap 7.0 BUN 18 Creatinine 0.91 Est Cr Clr Drug Dosing 35.7 Est GFR ( Amer) 66.2 Est GFR (Non-Af Amer) 57.1 BUN/Creatinine Ratio 20.1 H Glucose 85 Calcium 8.2 L Total Bilirubin 0.7 Direct Bilirubin 0.2 D AST 53 H ALT 36 Alkaline Phosphatase 69 Total Protein 6.8 Albumin 2.8 L Stool Occult Bld Scrn Negative (1) Sepsis Sepsis type: sepsis due to unspecified organism Sepsis acute organ dysfunction status: with acute organ dysfunction Severe sepsis acute organ dysfunction type: acute renal failure Acute renal failure type: unspecified Severe sepsis shock status: without septic shock Qualified Code(s): A41.9 - Sepsis, unspecified organism; R65.20 - Severe sepsis without septic shock; N17.9 - Acute kidney failure, unspecified
[2020-11-11] MEDS ORDERED: POTASSIUM CHLORIDE PWD 20 MEQ PACK PO ONE (19:00)
[2020-11-11] MEDS: REMDESIVIR 100 MG in SODIUM CHLORIDE 0.9% 230 ML IV SCH (21:25)
[2020-11-11] MEDS: SODIUM CHLORIDE 0.9% 10ML FLUSH IV SCH (21:26)
[2020-11-12] MEDS: ASCORBIC ACID 500 MG TAB PO SCH ×2 (05:43→20:13)
[2020-11-12] MEDS: CITALOPRAM 40 MG TAB PO SCH (05:44)
[2020-11-12] MEDS: NORMOSOL-R 1,000 ML IV SCH ×2 (07:01→13:50)
[2020-11-12 07:44] LABS: Albumin Level 2.9 gm/dl (3.4-5.0); Bilirubin Direct 0.2 mg/dl (0-0.2); Bilirubin,Total 0.8 mg/dl (0.2-1)
[2020-11-12] MEDS: dexAMETHasone 6 MG in SYRINGE 0 ML IV SCH (07:58)
[2020-11-12] MEDS: HEPARIN SOD 5,000 UNIT/0.5 ML VIAL SQ SCH ×2 (08:00→21:47)
[2020-11-12 10:58] LABS: BUN Creatinine Ratio 16.8 (10-20); Calcium 8.6 mg/dl (8.5-10.1); Creatinine Clr Calc Pharmacy 35.3 ml/min; Est GFR (African American) 65.3; Est GFR (Non-African American) 56.4; Magnesium 2.1 mg/dl (1.8-2.4); Potassium 3.7 mmol/L (3.5-5.1)
[2020-11-12] MEDS: QUEtiapine FUMARATE 100 MG TABLET PO SCH ×3 (12:42→20:13)
--- NOTE | 2020-11-12 20:47 | Hospitalist Progress Note ---
Date of Service November 12, 2020 Assessment & Plan (1) Sepsis: Possible sepsis, secondary to Covid pneumonia UTI ruled out per admitting service notes: This is an 85-year-old female with PMH of advanced dementia, mood disorder, recent UTI who presents from [facility] in [place] with gradual decline in UTI. 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 Urine culture ordered- added blood cx, lactate, procalcitonin -Prescribed Bactrim on 10/24 at [facility] but reportedly refusing abx in setting of 3 week gradual decline, per facility -Continue empiric abx with broad spectrum zosyn, vanc. MRSA swab pending, follow cultures and deescalate abx as appropriate -CT abd/pelvis without evidence of urinary obstruction. Bladder scan PRN 11/12 afebrile Urine culture: Alpha strep non-Enterococcus, sensitivities to follow Blood cultures: negative Zosyn discontinued COVID 19 Pneumonia report from SNF revealed (+) Covid 19 Ag and RNA on admission negative However, Covid PCR testing done at the [facility]p is positive dated 11/04/2020 CT abd/pelv: bilateral groundglass opacities O2 saturation decreased to 93% on room air Given Decadron and Remdesivir only for 2 days as patient did not have any IV access, she has been pulling at IV lines, and has been having difficulty obtaining IV access despite multiple attempts appetite still poor Overall, patient has declined p.o. intake while in hospital Patient also has no IV access despite multiple attempts At this point, recommend to transition patient to p.o. Decadron, and transition to [facility], For patient's comfort and quality of life Discussed with Dr. Monika Rider, palliative care consulted, agreeable with plan of care Attempted to call patient's POA for the past 3 days to discuss care but with no success Plan to transition to [facility] when accepted (2) Hypernatremia: (3) Generalized weakness: (4) Dehydration: Anorexia per admitting service notes: Na of 151, Cl 118 in setting of poor PO intake -Received 2 L bolus of NSS in ED. Repeating BMP and will then order additional fluids Nephro consulted D5W ordered Sodium normalized Patient still with poor oral intake, most likely secondary to underlying Covid infection, advanced dementia Patient's overall disposition and appetite may improve in a prison facility setting (5) Acute renal failure: per admitting service notes: Cr elevated at 2.14, BUN 51. Unsure of renal function baseline - requested records from Assisted Living facility -Expect improvement with IV fluids, Ct abd/pelvis without evidence of urinary obstruction crea now 1.17 (6) Ground glass opacity present on imaging of lung: per #1 (7) Constipation: CT abd/pelvis with rectosigmoid fecal retention and moderate constipation. No bowel obstruction is seen -Ordered Fleet enema, continue IV fluids (+) BM's (8) Mood disorder: Continue SSRI, Seroquel (9) Advanced dementia: Nonverbal at baseline, but per nursing staff was able to have her meals independently, ambulates independently Patient lives on a lockdown unit at [facility], no code (10) Goals of care, counseling/discussion: per admitting service notes; Discussed with YANELI Bain ([phone]) regarding goals of care. He is one of 3 POAs. Confirmed patient as a DNR/DNI. Ok with fluids and antibiotics. Agreeable to palliative care consult to further determine goals of care. DVT Ppx: SQ heparin Code status: DNR/DNI PCP: Pedro Pablo Floyd) Dispo: Awaiting acceptance to [facility] Admission and Anticipated Discharge Date Admission Date: November 05, 2020 Subjective Follow-up for Covid pneumonia, etc. Discussed with FLORENCIO Saldana Patient has been awake and alert today, but still declining any p.o. intake including liquids On exam, patient seen resting in bed, sleeping but easily awakened, calm and cooperative, smiling Pleasantly confused No signs of distress or pain No other symptom Review of Systems Review of Systems: All systems reviewed & are unremarkable except as noted in Subjective Physical Exam Physical Exam: General- oriented x 0, not in distress, speaks in sentences with no effort or accessory muscle use Eyes- anicteric Neck- no JVD Lungs- clear breath sounds bilaterally Heart- normal rate, regular rhythm; no murmurs Abdomen- normal bowel sounds, nondistended, soft, nontender Extremities- no pretibial edema, no calf tenderness Neuro- alert, oriented x 0; no new gross focal neurologic deficits Skin- warm & dry (1) Sepsis Sepsis type: sepsis due to unspecified organism Sepsis acute organ dysfunction status: with acute organ dysfunction Severe sepsis acute organ dysfunction type: acute renal failure Acute renal failure type: unspecified Severe sepsis shock status: without septic shock Qualified Code(s): A41.9 - Sepsis, unspecified organism; R65.20 - Severe sepsis without septic shock; N17.9 - Acute kidney failure, unspecified
[2020-11-13] MEDS: ASCORBIC ACID 500 MG TAB PO SCH (05:09)
[2020-11-13] MEDS ORDERED: dexAMETHasone 1 MG TAB PO SCH (09:00)
[2020-11-13] MEDS: HEPARIN SOD 5,000 UNIT/0.5 ML VIAL SQ SCH (09:12)
[2020-11-13] MEDS: QUEtiapine FUMARATE 100 MG TABLET PO SCH (11:59)
[2020-11-13] MEDS: CITALOPRAM 40 MG TAB PO SCH (11:59)
--- NOTE | 2020-11-13 12:31 | Discharge Summary ---
Date of Service November 13, 2020 Admission HPI Per Admitting Provider This is an 85-year-old female with PMH of advanced dementia, mood disorder, recent UTI who presents from [facility] in [place] with gradual decline in UTI. Patient lives in a dementia unit and is nonverbal at baseline. Was seen at [facility] at the end of September after fall. CT scans reportedly unremarkable and was sent back to facility. Since then, staff has noted a gradual decline. Is ambulatory at baseline, but has been more lethargic, refusing medications and not eating or drinking much. Was evaluated at [facility] on 10/24 with fever and concern for Covid. Covid test was negative and patient was diagnosed with UTI and sent home on Bactrim. No urine culture and records. Has not been compliant with medications, including Bactrim and was found to be febrile this morning temperature 100.5 F. Patient sent to [facility] for further evaluation. Patient is a DNR/DNI. Family member POA is involved and desired patient to come in for further evaluation. Reportedly okay with IV fluids and antibiotics but will clarify through phone discussion. Unable to obtain ROS due to cognitive status. In ED, patient afebrile. Tachycardic at 120. UA grossly abnormal and started on empiric Rocephin. Given 2 L NSS bolus. Covid antigen screen negative. CT abd/pelvis suboptimal examination without oral and IV contrast but presence of ground glass consolidation at both lung bases, right greater than left. This is typical for an infectious/inflammatory pneumonitis and clinical correlation will be required. No acute infectious or inflammatory findings in the abdomen or p sherrill. There is rectosigmoid fecal retention and moderate constipation. No bowel obstruction is seen. Admission Exam Per Admitting Provider Gen-AA not oriented, combative, Afebrile Head-NCAT, EOMI, PERRLA, Anicteric Sclera, No Posterior Pharyngeal Erythema, MM very dry Neck-Supple, No JVD, No Thyromegaly, No Masses, No LAD, No Bruits Lungs-Clear to Auscultation Bilaterally, No Rales, No Rhonchi, No Wheezing, No Crepitus Chest-No S4, +S1, +S2, No S3, No Murmurs, No Rubs, No Gallops, No Ectopy Abdomen-Soft, Bowel Sounds Present, Non Tender, Non Distended, No Hepatomegaly, No Splenomegaly, No Palpable Masses, No Rebound, No Rigidity, No Guarding Musculoskeletal-Full Range of Motion Bilaterally, No CVAT Extremities-No Cyanosis, No Clubbing, No Edema Nuero-Cranial Nerves II-XII grossly intact, Motor WNL, DTRs WNL, Strength WNL, Non Focal Psych-Normal Mood Principal Diagnosis COVID 19 Pneumonia Anorexia, Dehydration Advanced Dementia Discharge Exam General- oriented x 0, not in distress, speaks in sentences with no effort or accessory muscle use Eyes- anicteric Neck- no JVD Lungs- clear breath sounds bilaterally Heart- normal rate, regular rhythm; no murmurs Abdomen- normal bowel sounds, nondistended, soft, nontender Extremities- no pretibial edema, no calf tenderness Neuro- alert, oriented x 0; no new gross focal neurologic deficits Skin- warm & dry Discharge Data Allergies Allergy/AdvReac Type Severity Reaction Status Date / Time codeine Allergy Unknown ON Verified 11/05/20 15:41 [facility] Consultations 11/05/20 15:54 ED Decision to Admit Stat 11/05/20 19:06 Consult Case Management - Discharge Planning Routine 11/05/20 20:35 Consult Palliative Care Routine 11/06/20 09:17 Consult Nephrology Routine Ordered Studies 11/05/20 15:07 CT abd pelvis wo con Stat FINDINGS: Lung bases: The heart is normal in size noting trace pericardial effusion. There are coronary artery calcifications. There is subpleural groundglass consolidation at the right lung base. Minimal groundglass consolidation is noted in the lingula. No pleural effusion is seen. There is a large hiatal hernia. Liver: The unenhanced liver is normal in size, contour, and attenuation. There is no intrahepatic biliary ductal dilatation. Gallbladder: The gallbladder is distended but otherwise normal as imaged.. Spleen: Normal in size and attenuation. Pancreas: The unenhanced pancreas is atrophic and grossly unremarkable. Adrenal glands: Unremarkable. Kidneys: The unenhanced kidneys demonstrate cortical atrophy and are without hydronephrosis. There are no renal calculi identified. Bilateral renal cysts measure up to 3 cm. Abdominal vasculature: There is advanced atherosclerotic calcification and mild ectasia of the abdominal aorta. Bowel: There is rectosigmoid fecal retention and moderate constipation. No bowel obstruction is seen. The appendix is not visualized. Peritoneum: There is no intraperitoneal free air or abdominal ascites. Lymphadenopathy: None. Pelvic viscera: The bladder is grossly unremarkable. The uterus is surgically absent. No adnexal lesion is seen. Skeletal structures: The skeletal structures are osteopenic. There is moderate to advanced lumbosacral spondylosis. A chronic appearing compression deformities noted in T11. No lytic or blastic lesions are seen. IMPRESSION: 1. Suboptimal examination without oral and IV contrast. There is also significant streak and motion artifact 2. There is groundglass consolidation at both lung bases, right greater than left. This is typical for an infectious/inflammatory pneumonitis and clinical correlation will be required. 3. There are no acute infectious or inflammatory findings in the abdomen or pelvis. 4. There is rectosigmoid fecal retention and moderate constipation. No bowel o bstruction is seen. 5. The gallbladder is distended but otherwise normal as imaged. Consider right upper quadrant ultrasound if there is clinical concern for biliary pathology. 6. Large hiatal hernia. 7. Additional findings as above. ACT 112: Negative or not required by law. Hospital Course (1) Sepsis: Possible sepsis, secondary to Covid pneumonia UTI ruled out per admitting service notes: This is an 85-year-old female with PMH of advanced dementia, mood disorder, recent UTI who presents from [facility] in [place] with gradual decline in UTI. -Febrile [employer] with T: 100.5 F, tachycardia, urinary source of infection - meets sepsis per CMS guidelines -In ED, patient given 2 L NSS bolus and empiric Rocephin. Urine culture ordered- added blood cx, lactate, procalcitonin -Prescribed Bactrim on 10/24 at [facility] but reportedly refusing abx in setting of 3 week gradual decline, per facility -Continue empiric abx with broad spectrum zosyn, vanc. -CT abd/pelvis without evidence of urinary obstruction. Bladder scan PRN remained afebrile Urine culture: Alpha strep non-Enterococcus, sensitivities to follow Blood cultures: negative received 3 days of Zosyn COVID 19 Pneumonia report from SNF revealed (+) Covid 19 Ag and RNA on admission negative However, Covid PCR testing done at the [facility] is positive dated 11/04/2020 CT abd/pelv: bilateral groundglass opacities O2 saturation decreased to 93% on room air Given Decadron and Remdesivir only for 2 days as patient did not have any IV access, she has been pulling at IV lines, and has been having difficulty obtaining IV access despite multiple attempts appetite still poor Overall, patient has declined p.o. intake while in hospital Patient also has no IV access despite multiple attempts At this point, recommend to transition patient to p.o. Decadron (to complete 10 day course), and transition to [facility] facility For patient's comfort and quality of life Discussed with Dr. Monika Rider, palliative care consulted, agreeable with plan of care Attempted to call patient's POA for the past 3 days to discuss care but with no success Plan to transition to [facility] when accepted Encourage to ambulate to prevent DVT and PE, with assistance, fall precautions (2) Hypernatremia: (3) Generalized weakness: (4) Dehydration: Anorexia per admitting service notes: Na of 151, Cl 118 in setting of poor PO intake -Received 2 L bolus of NSS in ED. Repeating BMP and will then order additional fluids Nephro consulted D5W ordered Sodium normalized Patient still with poor oral intake, most likely secondary to underlying Covid infection, advanced dementia Patient's overall disposition and appetite may improve in a [facility] facility setting (5) Acute renal failure: per admitting service notes: Cr elevated at 2.14, BUN 51. Unsure of renal function baseline - requested records from Assisted Living facility -Expect improvement with IV fluids, Ct abd/pelvis without evidence of urinary obstruction crea now 1.17 (6) Ground glass opacity present on imaging of lung: per #1 (7) Constipation: CT abd/pelvis with rectosigmoid fecal retention and moderate constipation. No bowel obstruction is seen -Ordered Fleet enema, continue IV fluids (+) BM's (8) Mood disorder: Continue SSRI, Seroquel (9) Advanced dementia: Nonverbal at baseline, but per nursing staff was able to have her meals inde pendently, ambulates independently Patient lives on a lockdown unit at [facility] Fall Precautions, Assist with meals (10) Goals of care, counseling/discussion: per admitting service notes; Discussed with YANELI Bain ([phone]) regarding goals of care. He is one of 3 POAs. Confirmed patient as a DNR/DNI. Ok with fluids and antibiotics. Agreeable to palliative care consult to further determine goals of care. DVT Ppx: SQ heparin given Code status: DNR/DNI PCP: Pedro Pablo Floyd) Dispo:DC to [facility] Total Time Total Time Spent Total Time Spent (In Minutes): > 30 minutes Discharge Plan Discharge Items Patient Disposition: Transfer Snf Fac Reason For Visit: SEPSIS 2/2 UTI, DEHYDRATION Discharge Diagnosis: COVID 19 PNEUMONIA DEHYDRATION SECONDARY TO ANOREXIA Activity: Resume your previous activity Activity Comment: ALWAYS WITH ASSISTANCE, FALL PRECAUTIONS PLEASE Non-emergency contact: Primary Care Provider Call non-emergency contact if: you have any medication questions, your symptoms worsen and you have a fever Follow-up/Referrals: Sukhi Chamorro MD [Primary Care Provider] - Diet: Heart Healthy Diet Texture: Easy to Chew Diet Comment: ASPIRATION PRECAUTIONS PLEASE, ASSIST WITH MEALS Addtl Attending Provider Instructions: PLEASE REFER TO ACCOMPANYING HOSPITAL DISCHARGE SUMMARY. Ambulate frequently to prevent PE/DVT. Fall precautions. Encourage PO intake. Assist with meals. Pending Studies at Discharge: No Stand-Alone Forms: My [facility] Skilled Items Patient informed of condition?: Yes DNR: Yes Discharge Level of Care: Skilled Communicable Disease: Yes Discharge Prognosis: Deteriorating Lines: None Urinary Catheter: No Medications and DC Order Prescriptions: New dexamethasone 1 mg Tablet 6 mg PO DAILY Qty: 7 RF: 0 pantoprazole [Protonix] 40 mg tablet,delayed release (DR/EC) 40 mg PO DAILY Qty: 10 RF: 0 Continued silver sulfadiazine 1 % Cream 1 applic TOPICAL BID PRN (Reason: AFFECTED AREAS) RF: 0 acetaminophen [Tylenol] 325 mg Tablet 650 mg PO Q6H PRN (Reason: FEVER/PAIN) RF: 0 citalopram 40 mg Tablet 40 mg PO QDL RF: 0 quetiapine [Seroquel] 100 mg Tablet 150 mg PO BID RF: 0 lorazepam 0.5 mg Tablet 0.5 mg PO WK RF: 0 ascorbic acid (vitamin C) [Vitamin C] 500 mg Tablet 500 mg PO BID RF: 0 zinc gluconate 50 mg Tablet 50 mg PO BID RF: 0 nystatin 100,000 unit/gram Powder 1 applic TOPICAL TID PRN (Reason: Rash) RF: 0 trolamine salicylate [Aspercreme] 10 % Cream 1 applic TOPICAL BID PRN (Reason: LEG PAIN) RF: 0 Boost Liquid 1 ea PO DAILY PRN (Reason: IF EATS <25% OF MEALS) RF: 0 Biofreeze Pain Relieving 0.2-3.5 % Gel 1 applic TOPICAL QID PRN (Reason: Pain) RF: 0 Discontinued acetaminophen [Arthritis Pain Relief (acetam)] 650 mg Tablet Extended Release 650 mg PO BID RF: 0 sulfamethoxazole-trimethoprim 200-40 mg/5 mL Suspension 20 ml PO BID RF: 0 Admission Data Admit Date/Time: 11/05/20 16:06 Attending Provider: Teresa Brunner Admit Provider: Scooter Tse Primary Care Provider: Sukhi Chamorro Other Providers: Bin Ashton ; Monika Rider ; Coco Tan ; [facility] ; Scooter Tse
[2020-11-13 15:29] VITALS: BP 118/73; PULSE 85; TEMP 98.6; O2SAT 92
== END 2020-11-13 18:21 | DRG 871 ==
LOC: ED 12:57 → SUATTDRO 16:06 → 2N 16:06 → 2W 11-06 17:55 → 3E 11-09 19:54